=== PATIENT | female | born 1935 | race African-American/Black ===

== ENCOUNTER 2016-09-18 11:49 | Emergency (ER) | payer MEDICARE ==
[2016-09-18 12:27] LABS: #Eosinphils 0.1 thou/uL (0.0-0.7); #Lymphocytes 0.5 thou/uL (1.20-3.40); #Monocytes 0.2 thou/uL (0.11-0.59); #Neutrophils 1.6 thou/uL (1.40-6.50); %Basophils 1.1 % (0.0-1.0); %Eosinophils 6.1 % (0.0-10.0); %Monocytes 6.1 % (0.0-10.0); Hematocrit 35.8 % (36.0-47.0); Mean Platelet Volume 6.3 fL (7.4-10.4); Red Blood Cell (RBC) Count 3.46 mill/uL (4.20-5.40); White Blood Cell (WBC) Count 2.4 thou/uL (4.8-10.8)
[2016-09-18 12:30] LABS: Prothrombin Time 16.6 SEC (12.0-14.7)
[2016-09-18 12:38] LABS: Digoxin Less than 0.15 ng/mL (0.8-2.0)
[2016-09-18 12:40] LABS: ALT (SGPT) 39 U/L (0-55); AST (SGOT) 78 U/L (5-34); Alkaline Phosphatase 127 U/L (40-150); Anion Gap 9 mmol/L (10-20); BUN (Urea Nitrogen) 16 mg/dL (9.8-20.1); Bilirubin, Total 0.9 mg/dL (0.2-1.2); Calc. Creatinine Clearance 0 mL/min (70-130); Calcium 7.7 mg/dL (7.8-10.44); Carbon Dioxide 28 mmol/L (23-31); Chloride 107 mmol/L (98-107); Estimated GFR-MDRD 42; Globulin 5.8 g/dL (2.4-3.5)
[2016-09-18 12:47] LABS: Troponin I 0.024 ng/mL (< 0.028)
--- NOTE | 2016-09-18 13:23 | ERRECORD ---
[facility] EMERGENCY RECORD HPI GENERAL (12: [facility]) CHIEF COMPLAINT: Patient presents for evaluation of Bradycardia. HISTORIAN: History provided by patient, History provided by patient's partner, 81F presents to the ED on the advice of her visiting nurse that noted a slow heart rate at home today. Patient states that she has had some difficulty breathing for the past two weeks. States the nurse checks her pulse every few days. Reports that it might have been low the last time she checked, but does not believe that it was low prior to that. Denies chest pain. MECHANISM OF INJURY: Unknown mechanism. LOCATION: No localizing symptoms. TIME COURSE: Patient unable to describe onset of symptoms. ASSOCIATED WITH: No associated symptoms. RELIEVED BY: Nothing tried for relief. ROS (12:23 [facility]) CONSTITUTIONAL: Negative constitutional review of systems, Historian denies chills, denies fever. EYES: Negative eye review of systems, Historian denies eye pain, denies vision changes. ENT: Negative ears, nose, throat review of systems, Historian denies rhinorrhea, denies sore throat, denies voice changes. CARDIOVASCULAR: Negative cardiovascular review of systems, Historian denies chest pain, reports dyspnea on exertion, reports edema, denies palpitations. bilateral lower extremity edema. RESPIRATORY: Historian denies cough, Historian reports shortness of breath with exertion for the past two weeks. GI: Negative gastrointestinal review of systems, Historian denies abdominal pain, denies constipation, denies diarrhea, denies nausea, denies vomiting. GENITOURINARY FEMALE: Negative genitourinary review of systems, Historian denies dysuria, denies frequency. MUSCULOSKELETAL: Negative musculoskeletal review of systems, Historian denies back pain, denies fall, denies injury. SKIN: Negative skin review of systems, Historian denies rash, denies skin changes. NEUROLOGIC: Negative neurologic review of systems, Historian denies headache, denies mental status changes, denies paralysis, denies paresthesias, denies sensory changes. HEMO/LYMPHATIC: Normal hematologic/lymphatic system review, Historian denies abnormal blood clotting. ALLERGIC/IMMUNOLOGIC: Normal allergy/immunologic system review, Historian denies frequent infections. PAST MEDICAL HISTORY (12: [facility]) MEDICAL HISTORY: Flu vaccine up to date, No past medical history of diabetes, Past medical history includes history of &a-1R&a+25V*p+0X*[id number]*c202B*c15G*c2P*p-0X&a-25V&a+1R Name: Kota Hi : 1935 F80 MedRec: [id number] AcctNum: [id number] Prepared: SunSep 18, 2016 13:34 by Interface Page 1 of 4 pMD [facility] EMERGENCY RECORD hyperlipidemia, Past medical history includes history of hypertension. FEMALE SURGICAL HISTORY: Surgical history of hysterectomy, Surgical history of thyroidectomy. PSYCHIATRIC HISTORY: No previous psychiatric history. SOCIAL HISTORY: Patient drinks socially, every week, Patient denies drug use, Patient currently uses tobacco, smokes cigarettes, daily, Patient smokes 1 pack per day, Patient denies alcohol use, Patient denies drug use, Patient has no smoking history. FAMILY HISTORY: Maternal history of malignancy. KNOWN ALLERGIES No Known Allergies CURRENT MEDICATIONS meloxicam: TABLET : Strength - 7.5 mg : ORAL Patient Dose: 1 tab(s) Oral once a day. (11:57 JSMI) Synthroid: TABLET : Strength - 100 mcg : ORAL Patient Dose: 1 tab(s) Oral once a day. (11:57 JSMI) torsemide: TABLET : Strength - 100 mg : ORAL Patient Dose: 1 tab(s) Oral once a day. (11:57 JSMI) spironolactone: TABLET : Strength - 25 mg : ORAL Patient Dose: 1 tab(s) Oral 2 times a day. (11:57 JS[facility]) azaTHIOprine: TABLET : Strength - 50 mg : ORAL Patient Dose: 1 tab(s) Oral once a day. (11:57 JSMI) Calcium 600 + D(3): TABLET : Strength - 600 mg calcium (1,500 mg)-200 unit : ORAL Patient Dose: 1 tab(s) Oral once a day. (11:57 JS[facility]) Tenormin: TABLET : Strength - 50 mg : ORAL Patient Dose: 1 tab(s) Oral once a day. (12:53 JS[facility]) pantoprazole: TABLET, DELAYED RELEASE (ENTERIC COATED) : Strength - 40 mg : ORAL Patient Dose: once a day (in the morning). (12:56 JS[facility]) ProAir HFA: HFA AEROSOL WITH ADAPTER (GRAM) : Strength - 90 mcg : INHALATION Patient Dose: As Needed. (12:56 [facility]) tiZANidine: CAPSULE : Strength - 2 mg : ORAL Patient Dose: UNK. (12:56 [facility]) VITAL SIGNS VITAL SIGNS: BP: 188/92, Pulse: 40, Resp: 20, Pain: 0, O2 sat: 96 on Room Air, Time: 09/18/2016 11:58. (11:58 [facility]) &a-1R&a+25V*p+0X*h4605I*c202B*c15G*c2P*p-0X&a-25V&a+1R Name: Kota Hi : 1935 F80 MedRec: [id number] AcctNum: [id number] Prepared: SunSep 18, 2016 13:34 by Interface Page 2 of 4 pMD [facility] EMERGENCY RECORD BP: 164/76, Pulse: 37, Resp: 16, Pain: 0, O2 sat: 98 on Room Air, Time: 09/18/2016 12:16. (12:16 [facility]) BP: 167/76, Pulse: 36, Resp: 14, Pain: 0, O2 sat: 94 on Room Air, Time: 09/18/2016 12:57. (12:57 [facility]) BP: 162/80, Pulse: 40, Resp: 14, Pain: 0, O2 sat: 97 on Room Air, Time: 09/18/2016 13:10. (13:10 [facility]) PHYSICAL EXAM (12:23 [facility]) CONSTITUTIONAL: Vital signs reviewed, Patient afebrile, Pulse, bradycardic, Blood pressure normal, Respiratory rate normal, Patient appears non toxic, Patient appears pain free, Patient alert and oriented to person, place and time. HEAD: Head exam normal, Head exam included findings of head atraumatic, normocephalic. EYES: Eye exam normal, Eye exam included findings of eyelids normal to inspection, Pupils equally round and reactive to light, Extraocular muscles intact, no nystagmus. ENT: ENT exam normal, Ear exam normal, external ear normal, tympanic membranes normal, no bleeding, Pharynx exam normal, Uvula exam normal, Tonsil exam normal, Mouth exam normal, mucous membranes moist, teeth normal. NECK: Neck exam normal, Neck exam included findings of normal range of motion, Trachea midline, no meningeal signs, no cervical adenopathy, no tenderness. RESPIRATORY CHEST: Respiratory and chest exam normal, Respiratory exam included findings of no respiratory distress, Breath sounds clear. CARDIOVASCULAR: Cardiovascular assessment normal, Cardiovascular exam included findings of heart rate regular rate and rhythm, Heart sounds normal. ABDOMEN FEMALE: Abdominal exam included findings of abdomen nontender, Bowel sounds normal, no distension, no mass, no pulsatile masses, no peritoneal signs, no rigidity, no guarding, no rebound, Rovsing's sign absent. BACK: Back exam normal, Back exam included findings of normal inspection, range of motion normal, no tenderness. UPPER EXTREMITY: Upper extremity exam normal, Upper extremity exam included findings of inspection normal, Range of motion normal, Motor strength normal, Sensation intact, Radial pulse normal. LOWER EXTREMITY: Lower extremity exam normal, Lower extremity exam included findings of inspection normal, Range of motion normal, Motor strength normal, Sensation intact, Posterior tibial pulse normal, Pedal pulse normal. NEURO: Neuro exam normal, Neuro exam findings include patient oriented to person, place and time, Speech normal, Gait normal, Cranial nerves intact, no focal motor deficits, no focal sensory deficits. SKIN: Skin exam normal, Skin exam included findings of skin warm, dry, and normal in color, no rash. PSYCHIATRIC: Psychiatric exam normal, Normal affect. &a-1R&a+25V*p+0X*j5475T*c202B*c15G*c2P*p-0X&a-25V&a+1R Name: Kota Hi : 1935 F80 MedRec: [id number] AcctNum: [id number] Prepared: SunSep 18, 2016 13:34 by Interface Page 3 of 4 pMD [facility] EMERGENCY RECORD EKG INTERPRETATION (12:25 [facility]) 12 LEAD EKG INTERPRETATION: 12 lead EKG interpreted by Emergency Department Physician at time of study, 12 lead EKG shows, first degree AV Block, Rate (beats per minute): 39, with no ectopics, No previous EKG available for comparison, Interpretation:, Conduction with, incomplete right bundle branch block, ST segments normal. MEDICATION ADMINISTRATION SUMMARY Drug Name: calcium gluconate intravenous, Dose Ordered: 10 mL, Route: IV Piggy Back, Status: Given, Time: 13:10 09/18/2016, Detailed record available in Medication Service section. DOCTOR NOTES (13:11 [facility]) TEXT: Patient presented with asymptomatic bradycardia. On further questioning she noted occasional muscle cramps, but otherwise states she is in her normal state of health. Her lab work is notable for hypocalcemia, thrombocytopenia, and leukopenia. We have begun IV replacement of her calcium, and I believe she will benefit from transfer for further workup and investigation. PATIENT STATUS: Patient's status is unchanged since arrival to emergency department. PATIENT PLAN: The patient requires a transfer and will be transferred, per physician request, due to availability of specialty care, Transfer form completed. DATA REVIEWED: Lab data reviewed, Reviewed EKG. PROBLEM LIST No recorded problems DIAGNOSIS (13:02 [facility]) FINAL: PRIMARY: bradycardia, ADDITIONAL: HYPOCALCEMIA. PRESCRIPTION No recorded prescriptions DISPOSITION PATIENT: Disposition Type: Transfer, Disposition: Transfer to [facility]. (13:02 [facility]) Patient left the department. (13:32 [facility]) [place]: CHRISTIANOO=AMANDA Solis, December [facility]=MD Tracey, Tavo JSMI=LEONORA Lawton, Sandra &a-1R&a+25V*p+0X*[id number]*c202B*c15G*c2P*p-0X&a-25V&a+1R Name: Kota Hi Barry : 1935 F80 MedRec: [id number] AcctNum: [id number] Prepared: SunSep 18, 2016 13:34 by Interface Page 4 of 4 pMD MTDD
--- NOTE | 2016-09-18 13:28 | PICIS ---
[facility] EMERGENCY RECORD TRIAGE (SunSep 18, 2016 11:55 JSMI) PATIENT: NAME: Kota Hi, GENDER: female, TIME OF GREET: SunSep 18, 2016 11:50, PREFERRED LANGUAGE: Estonian, ETHNICITY: Not or , ECODE BILLING MAP: [facility], SSN: [id number], Zip Code: [address], KG WEIGHT: 77.11, PHONE: , , , PERSON ID: [id number], PAYMENT: [place] [employer], PCP: DO MCGRATH JOHN SCOTT. (SunSep 18, 2016 11:55 JSMI) AGE: 80, : Sun1935. (12:12) COMPLAINT: slow heart rate. (SunSep 18, 2016 11:55 JSMI) ADMISSION: URGENCY: 3 Urgent, ADMISSION SOURCE: Home, TRANSPORT: CAR, BED: TRIAGE. (SunSep 18, 2016 11:55 JSMI) ASSESSMENT: Assessment: PT PRESENTS AWAKE ALERT AND ORIENTED. SKIN PINK WARM AND DRY., Location: Ambulatory without difficulty denies dizziness. (12:01 JSMI) SIRS SCORING: Heart Rate 40-54 (1), Temp range 96.8-101.1 (0), respiratory rate 12-24 (0), Mental Status altered: no (0), Infection or Suspected Infection: No. (12:01 JSMI) PROVIDERS: TRIAGE NURSE: Sandra Lawton RN. (SunSep 18, 2016 11:55 JSMI) VITAL SIGNS: BP 188/92, Pulse 40, Resp 20, Pain 0, O2 Sat 96, on Room Air, Time 09/18/2016 11:58. (11:58 JSMI) PREVIOUS VISIT ALLERGIES: No Known Allergies. (SunSep 18, 2016 11:55 JSMI) No Known Allergies. (12:01 JSMI) KNOWN ALLERGIES No Known Allergies CURRENT MEDICATIONS meloxicam: TABLET : Strength - 7.5 mg : ORAL Patient Dose: 1 tab(s) Oral once a day. (11:57 JSMI) Synthroid: TABLET : Strength - 100 mcg : ORAL Patient Dose: 1 tab(s) Oral once a day. (11:57 JSMI) torsemide: TABLET : Strength - 100 mg : ORAL Patient Dose: 1 tab(s) Oral once a day. (11:57 JSMI) spironolactone: TABLET : Strength - 25 mg : ORAL Patient Dose: 1 tab(s) Oral 2 times a day. (11:57 JSMI) azaTHIOprine: TABLET : Strength - 50 mg : ORAL Patient Dose: 1 tab(s) Oral once a day. (11:57 JSMI) Calcium 600 + D(3): TABLET : Strength - 600 mg calcium (1,500 mg)-200 unit : ORAL Patient Dose: 1 tab(s) Oral once a day. (11:57 JSMI) Tenormin: TABLET : Strength - 50 mg : ORAL &a-1R&a+25V*p+0X*i5110Y*c202B*c15G*c2P*p-0X&a-25V&a+1R Name: Kota Hi : 1935 F80 MedRec: [id number] AcctNum: [id number] Prepared: SunSep 18, 2016 13:34 by Interface Page 1 of 8 pMD [facility] EMERGENCY RECORD Patient Dose: 1 tab(s) Oral once a day. (12:53 JSMI) pantoprazole: TABLET, DELAYED RELEASE (ENTERIC COATED) : Strength - 40 mg : ORAL Patient Dose: once a day (in the morning). (12:56 JSMI) ProAir HFA: HFA AEROSOL WITH ADAPTER (GRAM) : Strength - 90 mcg : INHALATION Patient Dose: As Needed. (12:56 JSMI) tiZANidine: CAPSULE : Strength - 2 mg : ORAL Patient Dose: UNK. (12:56 JSMI) VITAL SIGNS VITAL SIGNS: BP: 188/92, Pulse: 40, Resp: 20, Pain: 0, O2 sat: 96 on Room Air, Time: 09/18/2016 11:58. (11:58 JSMI) BP: 164/76, Pulse: 37, Resp: 16, Pain: 0, O2 sat: 98 on Room Air, Time: 09/18/2016 12:16. (12:16 AHOO) BP: 167/76, Pulse: 36, Resp: 14, Pain: 0, O2 sat: 94 on Room Air, Time: 09/18/2016 12:57. (12:57 JSMI) BP: 162/80, Pulse: 40, Resp: 14, Pain: 0, O2 sat: 97 on Room Air, Time: 09/18/2016 13:10. (13:10 JSMI) NURSING ASSESSMENT: FALL RISK (12:57 JSMI) FALL RISK: Total score 0. NURSING PROCEDURE: BEDSIDE SIRS TESTING (13:11 AHOO) SCORES: Heart Rate 30-39 (3), Temp range 96.8-101.1 (0), respiratory rate 12-24 (0), Latest WBC 1-2.9 (2), Mental Status altered: no (0), Infection or Suspected Infection: No. NURSING PROCEDURE: EKG CHART (12:01 AHOO) PATIENT IDENTIFIER: Patient actively involved in identification process, Patient's identity verified by patient stating name, Patient's identity verified by patient stating date, Patient's identity verified by hospital ID bracelet, Patient's identity verified by family member. EKG: EKG indicated for complaint of an irregular heart beat, 12 lead EKG performed on the left chest, done by MARTHA PINZON LVN, first EKG. FOLLOW-UP: After procedure, EKG for interpretation given to Dr. DR HAMPTON. NURSING PROCEDURE: IV (12:10 AHOO) PATIENT IDENITIFIER: Patient actively involved in identification process, Patient's identity verified by patient stating name, Patient's identity verified by patient stating date, Patient's identity verified by hospital ID bracelet, Patient's identity verified by family member. IV SITE 1: IV therapy indicated for medication administration, IV established, to the left antecubital, using an 18 gauge catheter, in one attempt, Saline lock established, Flushed with normal saline &a-1R&a+25V*p+0X*h0256R*c202B*c15G*c2P*p-0X&a-25V&a+1R Name: Kota Hi : 1935 F80 MedRec: [id number] AcctNum: [id number] Prepared: SunSep 18, 2016 13:34 by Interface Page 2 of 8 pMD [facility] EMERGENCY RECORD (mls): 10ML, Labs drawn at time of placement, labeled in the presence of the patient and sent to lab. NURSING PROCEDURE: TRANSFER TRANSFER: Report called to receiving facility, LEONORA Carlton, Provided opportunity to answer questions. (13:25 JSWV) Reason for transfer need for specialized care, Diagnosis: HYPOKALEMIA, BRADYCARDIA, Accepting institution: [facility], Accepting physician: DR SHARMA, Referring physician: DR HAMPTON, Transported by urgent ambulance, accompanied by emergency medical services personnel, Summary of Care printed, Copy of patient record prepared for receiving facility, Medication reconciliation form prepared and sent to receiving facility, Patient consent for transfer signed, Family member contacted, PT SPOUSE AT BEDSIDE, Notes: 1254 CALLED THE TRANSFER CENTER AND SPOKE WITH BLACK, 1258 DR SHARMA ACCEPTED, 1258 ACCEPTING AD IS CLAUDETTE LOW, 1302 CALLED EMS, 1306 EMS ARRIVED, 1314 EMS LEFT WITH THE PT. (12:54 [facility]) ORDER DETAILS Order Name: Cardiac Profile w/CKMB & Troponin - I, Status: Active, Time: 12:05 09/18/2016, User: KAJAL, - Ordered for: MD Hampton Jason, - Entered by: MD Hampton Jason - Claribel Sep 18, 2016 12:05, - Quantity: 1, Order Name: CBC with Differential, Status: Active, Time: 12:05 09/18/2016, User: KAJAL, - Ordered for: MD Hampton Jason, - Entered by: MD Hampton Jason - Claribel Sep 18, 2016 12:05, - Quantity: 1, Order Name: Comprehensive Metabolic Panel, Status: Active, Time: 12:05 09/18/2016, User: KAJAL, - Ordered for: MD Hampton Jason, - Entered by: MD Hampton Jason - Claribel Sep 18, 2016 12:05, - Quantity: 1, Order Name: Digoxin, Status: Active, Time: 12:05 09/18/2016, User: KAJAL, - Ordered for: MD Hampton Jason, - Entered by: MD Hampton Jason - Claribel Sep 18, 2016 12:05, - Quantity: 1, Order Name: EKG 12 Lead in Emergency Room, Status: Active, Time: 12:05 09/18/2016, User: KAJAL, - Ordered for: MD Hampton Jason, - Entered by: MD Hampton Jason - [facility] Sep 18, 2016 12:05, - Quantity: 1, Order Name: Protime with INR, Status: Active, Time: 12:05 09/18/2016, User: KAJAL, - Ordered for: MD Hampton Jason, - Entered by: MD Hampton Jason - [facility] Sep 18, 2016 12:05, - Quantity: 1, &a-1R&a+25V*p+0X*m5111X*c202B*c15G*c2P*p-0X&a-25V&a+1R Name: Kota Hi : 1935 F80 MedRec: [id number] AcctNum: [id number] Prepared: SunSep 18, 2016 13:34 by Interface Page 3 of 8 D [facility] EMERGENCY RECORD Order Name: PTT, Status: Active, Time: 12:05 09/18/2016, User: ASHLEY, - Ordered for: MD Hampton Jason, - Entered by: MD Hampton Jason - [facility] Sep 18, 2016 12:05, - Quantity: 1, Order Name: SALINE LOCK, Status: Done, Time: 12:07 09/18/2016, User: [facility], - Ordered for: MD Hampton Jason, - Entered by: MD Hampton Jason - [facility] Sep 18, 2016 12:05, - Quantity: 1. MEDICATION ADMINISTRATION SUMMARY Drug Name: calcium gluconate intravenous, Dose Ordered: 10 mL, Route: IV Piggy Back, Status: Given, Time: 13:10 09/18/2016, Detailed record available in Medication Service section. MEDICATION SERVICE (13:10 [facility]) calcium gluconate intravenous: Order: calcium gluconate intravenous (calcium gluconate) - Dose: 10 mL : IV Piggy Back Ordered by: Tavo Hampton MD Entered by: Tavo Hampton MD SunSep 18, 2016 13:02 , Acknowledged by: Martha Pinzon LVN SunSep 18, 2016 13:10 Documented as given by: Sandra Lawton RN SunSep 18, 2016 13:10 Patient, Medication, Dose, Route and Time verified prior to administration. IV SITE #1 IVPB or drip, initial infusion, IVPB mixed in: 100ml, Fluid: 0.9NS, via pump tubing, Catheter placement confirmed via flush prior to administration, IV site without signs or symptoms of infiltration during medication administration, No swelling during administration, No drainage during administration, IV flushed after administration, Correct patient, time, route, dose and medication confirmed prior to administration, Patient advised of actions and side-effects prior to administration, Allergies confirmed and medications reviewed prior to administration, Patient in position of comfort, Side rails up, Cart in lowest position, Family at bedside. HPI GENERAL (12:01 [facility]) CHIEF COMPLAINT: Patient presents for evaluation of Bradycardia. HISTORIAN: History provided by patient, History provided by patient's partner, 81F presents to the ED on the advice of her visiting nurse that noted a slow heart rate at home today. Patient states that she has had some difficulty breathing for the past two weeks. States the nurse checks her pulse every few days. Reports that it might have been low the last time she checked, but does not believe that it was low prior to that. Denies chest pain. MECHANISM OF INJURY: Unknown mechanism. LOCATION: No localizing symptoms. TIME COURSE: Patient unable to describe onset of &a-1R&a+25V*p+0X*i3177U*c202B*c15G*c2P*p-0X&a-25V&a+1R Name: Kota Hi : 1935 F80 MedRec: [id number] AcctNum: [id number] Prepared: SunSep 18, 2016 13:34 by Interface Page 4 of 8 pMD [facility] EMERGENCY RECORD symptoms. ASSOCIATED WITH: No associated symptoms. RELIEVED BY: Nothing tried for relief. ROS (12:23 [facility]) CONSTITUTIONAL: Negative constitutional review of systems, Historian denies chills, denies fever. EYES: Negative eye review of systems, Historian denies eye pain, denies vision changes. ENT: Negative ears, nose, throat review of systems, Historian denies rhinorrhea, denies sore throat, denies voice changes. CARDIOVASCULAR: Negative cardiovascular review of systems, Historian denies chest pain, reports dyspnea on exertion, reports edema, denies palpitations. bilateral lower extremity edema. RESPIRATORY: Historian denies cough, Historian reports shortness of breath with exertion for the past two weeks. GI: Negative gastrointestinal review of systems, Historian denies abdominal pain, denies constipation, denies diarrhea, denies nausea, denies vomiting. GENITOURINARY FEMALE: Negative genitourinary review of systems, Historian denies dysuria, denies frequency. MUSCULOSKELETAL: Negative musculoskeletal review of systems, Historian denies back pain, denies fall, denies injury. SKIN: Negative skin review of systems, Historian denies rash, denies skin changes. NEUROLOGIC: Negative neurologic review of systems, Historian denies headache, denies mental status changes, denies paralysis, denies paresthesias, denies sensory changes. HEMO/LYMPHATIC: Normal hematologic/lymphatic system review, Historian denies abnormal blood clotting. ALLERGIC/IMMUNOLOGIC: Normal allergy/immunologic system review, Historian denies frequent infections. PAST MEDICAL HISTORY (12:01 [facility]) MEDICAL HISTORY: Flu vaccine up to date, No past medical history of diabetes, Past medical history includes history of hyperlipidemia, Past medical history includes history of hypertension. FEMALE SURGICAL HISTORY: Surgical history of hysterectomy, Surgical history of thyroidectomy. PSYCHIATRIC HISTORY: No previous psychiatric history. SOCIAL HISTORY: Patient drinks socially, every week, Patient denies drug use, Patient currently uses tobacco, smokes cigarettes, daily, Patient smokes 1 pack per day, Patient denies alcohol use, Patient denies drug use, Patient has no smoking history. FAMILY HISTORY: Maternal history of malignancy. PHYSICAL EXAM (12:23 [facility]) &a-1R&a+25V*p+0X*r1269W*c202B*c15G*c2P*p-0X&a-25V&a+1R Name: Kota Hi : 1935 F80 MedRec: [id number] AcctNum: [id number] Prepared: SunSep 18, 2016 13:34 by Interface Page 5 of 8 pMD [facility] EMERGENCY RECORD CONSTITUTIONAL: Vital signs reviewed, Patient afebrile, Pulse, bradycardic, Blood pressure normal, Respiratory rate normal, Patient appears non toxic, Patient appears pain free, Patient alert and oriented to person, place and time. HEAD: Head exam normal, Head exam included findings of head atraumatic, normocephalic. EYES: Eye exam normal, Eye exam included findings of eyelids normal to inspection, Pupils equally round and reactive to light, Extraocular muscles intact, no nystagmus. ENT: ENT exam normal, Ear exam normal, external ear normal, tympanic membranes normal, no bleeding, Pharynx exam normal, Uvula exam normal, Tonsil exam normal, Mouth exam normal, mucous membranes moist, teeth normal. NECK: Neck exam normal, Neck exam included findings of normal range of motion, Trachea midline, no meningeal signs, no cervical adenopathy, no tenderness. RESPIRATORY CHEST: Respiratory and chest exam normal, Respiratory exam included findings of no respiratory distress, Breath sounds clear. CARDIOVASCULAR: Cardiovascular assessment normal, Cardiovascular exam included findings of heart rate regular rate and rhythm, Heart sounds normal. ABDOMEN FEMALE: Abdominal exam included findings of abdomen nontender, Bowel sounds normal, no distension, no mass, no pulsatile masses, no peritoneal signs, no rigidity, no guarding, no rebound, Rovsing's sign absent. BACK: Back exam normal, Back exam included findings of normal inspection, range of motion normal, no tenderness. UPPER EXTREMITY: Upper extremity exam normal, Upper extremity exam included findings of inspection normal, Range of motion normal, Motor strength normal, Sensation intact, Radial pulse normal. LOWER EXTREMITY: Lower extremity exam normal, Lower extremity exam included findings of inspection normal, Range of motion normal, Motor strength normal, Sensation intact, Posterior tibial pulse normal, Pedal pulse normal. NEURO: Neuro exam normal, Neuro exam findings include patient oriented to person, place and time, Speech normal, Gait normal, Cranial nerves intact, no focal motor deficits, no focal sensory deficits. SKIN: Skin exam normal, Skin exam included findings of skin warm, dry, and normal in color, no rash. PSYCHIATRIC: Psychiatric exam normal, Normal affect. LAB INTERPRETATION (13:10 [facility]) INTERPRETATION: I reviewed the lab results, CBC abnormal, White blood cell count decreased, Platelets decreased, Chemistry abnormal, Creatinine elevated, Calcium decreased, Cardiac enzymes normal. &a-1R&a+25V*p+0X*d1351L*c202B*c15G*c2P*p-0X&a-25V&a+1R Name: Kota Hi : 1935 F80 MedRec: [id number] AcctNum: [id number] Prepared: SunSep 18, 2016 13:34 by Interface Page 6 of 8 pMD [facility] EMERGENCY RECORD EVENTS TRANSFER: Triage to Emergency Triage. (SunSep 18, 2016 11:55 JSMI) Emergency Triage to Emergency Room -02. (12:07 AHOO) Removed from Emergency Emergency Room -02. (13:32 AHOO) EKG INTERPRETATION (12:25 [facility]) 12 LEAD EKG INTERPRETATION: 12 lead EKG interpreted by Emergency Department Physician at time of study, 12 lead EKG shows, first degree AV Block, Rate (beats per minute): 39, with no ectopics, No previous EKG available for comparison, Interpretation:, Conduction with, incomplete right bundle branch block, ST segments normal. DOCTOR NOTES (13:11 [facility]) TEXT: Patient presented with asymptomatic bradycardia. On further questioning she noted occasional muscle cramps, but otherwise states she is in her normal state of health. Her lab work is notable for hypocalcemia, thrombocytopenia, and leukopenia. We have begun IV replacement of her calcium, and I believe she will benefit from transfer for further workup and investigation. PATIENT STATUS: Patient's status is unchanged since arrival to emergency department. PATIENT PLAN: The patient requires a transfer and will be transferred, per physician request, due to availability of specialty care, Transfer form completed. DATA REVIEWED: Lab data reviewed, Reviewed EKG. PROBLEM LIST No recorded problems DIAGNOSIS (13:02 [facility]) FINAL: PRIMARY: bradycardia, ADDITIONAL: HYPOCALCEMIA. DISPOSITION PATIENT: Disposition Type: Transfer, Disposition: Transfer to [facility]. (13:02 [facility]) Patient left the department. (13:32 [facility]) PRESCRIPTION No recorded prescriptions IMAGING *EKG: Image captured from scanner. (12:46 [facility]) CONSENTS: Image captured from scanner. (13:23 [facility]) *MEMORANDUM OF TRANSFER: Image captured from scanner. (13:23 [facility]) PHYSICIAN CERTIFICATION STATEMENT: Image captured from scanner. (13:23 [facility]) &a-1R&a+25V*p+0X*r0588P*c202B*c15G*c2P*p-0X&a-25V&a+1R Name: Kota Hi : 1935 F80 MedRec: [id number] AcctNum: [id number] Prepared: SunSep 18, 2016 13:34 by Interface Page 7 of 8 pMD [facility] EMERGENCY RECORD *SUPPLY CHARGE SHEET: Image captured from scanner. (13:23 [facility]) [facility] DIGITAL SIGNATURE: MD Hampton Jason. [place]: JORGE=AMANDA Pinzon, December ASHLEYC=MD Hampton Jason JSMI=LEONORA Lawton, Sandra &a-1R&a+25V*p+0X*x6068N*c202B*c15G*c2P*p-0X&a-25V&a+1R Name: Kota Hi Barry : 1935 F80 MedRec: [id number] AcctNum: [id number] Prepared: [facility] Sep 18, 2016 13:34 by Interface Page 8 of 8 pMD MTDD
== END 2016-09-18 13:06 | disposition short-term general hospital (02) ==
LOC: BURERS 11:49 → EDBD 11:49 → BURERS 13:06
DX: R00.1 Bradycardia, unspecified (principal); E83.51 Hypocalcemia; F17.210 Nicotine dependence, cigarettes, uncomplicated; E11.9 Type 2 diabetes mellitus without complications; E78.5 Hyperlipidemia, unspecified; I10 Essential (primary) hypertension; Z90.710 Acquired absence of both cervix and uterus
CPT/HCPCS: 80053; 80162; 82553; 83735; 84484; 85025; 85610; 85730; 93005

== ENCOUNTER 2016-10-12 07:24 | Emergency (ER) | payer MEDICARE ==
[2016-10-12 08:34] LABS: #Lymphocytes 0.4 thou/uL (1.20-3.40); #Monocytes 0.2 thou/uL (0.11-0.59); #Neutrophils 5.8 thou/uL (1.40-6.50); %Basophils 0.2 % (0.0-1.0); %Eosinophils 0.2 % (0.0-10.0); %Monocytes 3.5 % (0.0-10.0); Hematocrit 34.2 % (36.0-47.0); Mean Platelet Volume 6.9 fL (7.4-10.4); Red Blood Cell (RBC) Count 3.37 mill/uL (4.20-5.40); White Blood Cell (WBC) Count 6.4 thou/uL (4.8-10.8)
[2016-10-12] MEDS ORDERED: Amoxicillin/Potassium Clav 875 MG TAB ONE (08:36)
[2016-10-12 08:40] LABS: Lactic Acid - Sepsis 2.3 mmol/L (0.5-2.2)
[2016-10-12 08:42] LABS: Troponin I Less than 0.010 ng/mL (< 0.028)
[2016-10-12 08:45] LABS: ALT (SGPT) 41 U/L (0-55); AST (SGOT) 71 U/L (5-34); Alkaline Phosphatase 153 U/L (40-150); Anion Gap 10 mmol/L (10-20); BUN (Urea Nitrogen) 11 mg/dL (9.8-20.1); Bilirubin, Total 1.1 mg/dL (0.2-1.2); Calc. Creatinine Clearance 0 mL/min (70-130); Calcium 8.1 mg/dL (7.8-10.44); Carbon Dioxide 31 mmol/L (23-31); Chloride 101 mmol/L (98-107); Estimated GFR-MDRD 52; Globulin 6.7 g/dL (2.4-3.5); Lipase 76 U/L (8-78); Protein, Total 10.2 g/dL (5.8-8.1)
[2016-10-12 08:54] LABS: Macrocytosis SLIGHT = 6-15 cells (100X) (0-5/hpf)
--- NOTE | 2016-10-12 09:12 | PICIS ---
[facility] EMERGENCY RECORD TRIAGE (SunOct 12, 2016 07:30 KMOR) TRIAGE NOTES: Abdominal pain started last night, feels constipated. Vomited x2. (SunOct 12, 2016 07:30 KMOR) PATIENT: NAME: Kota iH, GENDER: female, TIME OF GREET: SunOct 12, 2016 07:25, PREFERRED LANGUAGE: Kazakh, ETHNICITY: Not or , ECODE BILLING MAP: [facility], SSN: [id number], Zip Code: [address], KG WEIGHT: 122.47, PHONE: , , , PERSON ID: [id number], PAYMENT: [employer], PCP: DO MCGRATH JOHN SCOTT. (SunOct 12, 2016 07:30 KMOR) AGE: 81, : Sun Nov 17, 1934. (07:52) COMPLAINT: Abdominal Pain. (SunOct 12, 2016 07:30 KMOR) ADMISSION: URGENCY: 3 Urgent, ADMISSION SOURCE: Home, TRANSPORT: CAR, BED: ER -03. (SunOct 12, 2016 07:30 KMOR) ASSESSMENT: Assessment: A&XO4. RR EVEN AND UNLABORED., Symptoms began yesterday. (07:32 KMOR) PAIN: Patient complains of pain described as, aching, cramping, on a scale 0-10 patient rates pain as 8. (07:32 KMOR) IMMUNIZATIONS: Flu vaccine up to date, Tetanus immunization up to date. (07:32 KMOR) SIRS SCORING: Heart Rate 55-109 (0), Temp range 96.8-101.1 (0), respiratory rate 12-24 (0), Mental Status altered: no (0), Infection or Suspected Infection: No. (07:32 KMOR) TRIAGE SCREENING: Patient denies suicidal ideation, Patient denies presence of domestic violence. (07:32 KMOR) LMP: LMP: Hysterectomy. (07:32 KMOR) PROVIDERS: TRIAGE NURSE: Deyanira Rodriguez RN. (SunOct 12, 2016 07:30 KMOR) VITAL SIGNS: BP 153/91, Pulse 82, Resp 18, Temp 97.8, (Oral), Pain 8, O2 Sat 94, on Room Air, Time 10/12/2016 07:31. (07:31 KMOR) PREVIOUS VISIT ALLERGIES: No Known Allergies. (SunOct 12, 2016 07:30 KMOR) No Known Allergies. (07:32 KMOR) KNOWN ALLERGIES No Known Allergies (Unconfirmed) No Known Drug Allergies CURRENT MEDICATIONS (07:44 KMOR) meloxicam: TABLET : Strength - 7.5 mg : ORAL Patient Dose: 1 tab(s) Oral once a day. Synthroid: TABLET : Strength - 100 mcg : ORAL Patient Dose: 1 tab(s) Oral once a day. torsemide: TABLET : Strength - 100 mg : ORAL Patient Dose: 1 tab(s) Oral once a day. spironolactone: &a-1R&a+25V*p+0X*m2962L*c202B*c15G*c2P*p-0X&a-25V&a+1R Name: Kota Hi Stacy : 11/17/1934 F81 MedRec: [id number] AcctNum: [id number] Prepared: SunOct 12, 2016 10:13 by Interface Page 1 of 10 pMD [facility] EMERGENCY RECORD TABLET : Strength - 25 mg : ORAL Patient Dose: 1 tab(s) Oral 2 times a day. azaTHIOprine: TABLET : Strength - 50 mg : ORAL Patient Dose: 1 tab(s) Oral once a day. Calcium 600 + D(3): TABLET : Strength - 600 mg calcium (1,500 mg)-200 unit : ORAL Patient Dose: 1 tab(s) Oral once a day. Tenormin: TABLET : Strength - 50 mg : ORAL Patient Dose: 1 tab(s) Oral once a day. pantoprazole: TABLET, DELAYED RELEASE (ENTERIC COATED) : Strength - 40 mg : ORAL Patient Dose: once a day (in the morning). ProAir HFA: HFA AEROSOL WITH ADAPTER (GRAM) : Strength - 90 mcg : INHALATION Patient Dose: As Needed. tiZANidine: CAPSULE : Strength - 2 mg : ORAL Patient Dose: UNK. VITAL SIGNS VITAL SIGNS: BP: 153/91, Pulse: 82, Resp: 18, Temp: 97.8 (Oral), Pain: 8, O2 sat: 94 on Room Air, Time: 10/12/2016 07:31. (07:31 KMOR) BP: 155/82, Pulse: 70, Resp: 16, Pain: 5, O2 sat: 100 on Room Air, Time: 10/12/2016 08:30. (08:30 KMOR) BP: 163/86, Pulse: 70, Resp: 16, Pain: 5, O2 sat: 95 on Room Air, Time: 10/12/2016 09:20. (09:20 KMOR) BP: 156/90, Pulse: 72, Resp: 16, Temp: 98.1 (Oral), Pain: 3, O2 sat: 95 on Room Air, Time: 10/12/2016 09:42. (09:42 KMOR) NURSING ASSESSMENT: ABDOMEN (07:45 KMOR) CONSTITUTIONAL: Patient arrives ambulatory, Gait steady, History obtained from patient, Patient appears comfortable, Patient cooperative, Patient alert, Oriented to person, place and time, Skin warm, Skin dry, Skin normal in color, Mucous membranes pink, Mucous membranes moist, Patient is well-groomed, Patient complains of Abdominal pain, Patient reports upper abdominal pain starting last night, reports 2 episodes of vomiting last night and a hard bowel movement 2 days ago. No urinary complaints. PAIN: aching pain, cramping pain, to the left upper quadrant, to the epigastric region, on a scale 0-10 patient rates pain as 7. ABDOMEN: Abdomen assessment findings include abdomen symmetrical, Abdomen soft, tender, to the epigastric region, to the left upper quadrant, Bowel sound normal, Associated with nausea, Associated with vomiting, history of vomiting, Number of times: 2, having bilious emesis, Associated with constipation, Date of last bowel movement: 10/10/2016. &a-1R&a+25V*p+0X*d0908Q*c202B*c15G*c2P*p-0X&a-25V&a+1R Name: Kota Hi : 11/17/1934 F81 MedRec: [id number] AcctNum: [id number] Prepared: SunOct 12, 2016 10:13 by Interface Page 2 of 10 pMD [facility] EMERGENCY RECORD LMP: Last menstrual period not applicable due to hysterectomy history. GENITOURINARY FEMALE: no associated urinary complaints. NOTES: Patient tolerated procedure well. NURSING PROCEDURE: HEALTHCARE ARCHITECT (08:20 KMOR) PATIENT IDENTIFIER: Patient actively involved in identification process, Patient's identity verified by patient stating name, Patient's identity verified by patient stating date. HEALTHCARE ARCHITECT: Cardiac monitoring indicated for abdominal pain, Patient placed on academic support assistant, Heart rate: 82, showing paced rhythm. NOTES: Patient tolerated procedure well. NURSING PROCEDURE: COMMUNICATIONS (09:24 LSMI) COMMUNICATIONS: Physician, DR MARTIN CALLED BACK AND SPOKE WITH DR HAMPTON. NURSING PROCEDURE: DISCHARGE NOTE (09:45 KMOR) DISCHARGE: Patient discharged to home, in a wheelchair, family driving, accompanied by //partner, Summary of Care printed/ provided, Transition record given to patient, Discharge instructions given to patient, Simple or moderate discharge teaching performed, by LEONORA Mcmillan, Discharge and follow up reviewed with patient, patient wheeled to vehicle., Prescriptions given and instructions on side effects given, Name of prescription(s) given: Colace, Above person(s) verbalized understanding of discharge instructions and follow-up care. BELONGINGS: Belongings remain with patient, Valuables remain with patient. NURSING PROCEDURE: EKG CHART (08:17 KMOR) PATIENT IDENTIFIER: Patient actively involved in identification process, Patient's identity verified by patient stating name, Patient's identity verified by patient stating date. EKG: EKG indicated for abdominal pain, 12 lead EKG performed on the left chest, done by LEONORA Mcmillan, first EKG. FOLLOW-UP: After procedure, EKG for interpretation given to Dr. Arauz. NOTES: Patient tolerated procedure well. NURSING PROCEDURE: ELIMINATION (08:07 KMOR) PATIENT IDENTIFIER: Patient actively involved in identification process, Patient's identity verified by patient stating name, Patient's identity verified by patient stating date. ELIMINATION: Patient disimpacted, Notes: Performed by Dr. Arauz. NOTES: Patient tolerated procedure well. NURSING PROCEDURE: IV &a-1R&a+25V*p+0X*h7160B*c202B*c15G*c2P*p-0X&a-25V&a+1R Name: Kota Hi : 11/17/1934 F81 MedRec: [id number] AcctNum: [id number] Prepared: SunOct 12, 2016 10:13 by Interface Page 3 of 10 D [facility] EMERGENCY RECORD PATIENT IDENITIFIER: Patient actively involved in identification process, Patient's identity verified by patient stating name, Patient's identity verified by patient stating date, Patient's identity verified by hospital ID rloand, Patient's identity verified by family member. (08:15 LSMI) IV SITE 1: IV therapy indicated for hydration, IV therapy indicated for medication administration, IV established, to the left antecubital, using a 20 gauge catheter, in one attempt, Saline lock established, Flushed with normal saline (mls): 10, Labs drawn at time of placement, labeled in the presence of the patient and sent to lab. (08:15 LSMI) FOLLOW-UP SITE 1: IV discontinued, due to patient being discharged, catheter intact. (09:42 KMOR) NOTES: Patient tolerated procedure well. (09:42 KMOR) NURSING PROCEDURE: NURSE NOTES (09:29 KMOR) NURSES NOTES: Notes: Patient resting back in bed, RR Even and unlabored. Denies needs at this time. NURSING PROCEDURE: TRANSPORT TO TESTS PATIENT IDENTIFIER: Patient actively involved in identification process, Patient's identity verified by patient stating name, Patient's identity verified by patient stating date. (08:57 KMOR) TRANSPORT TO TESTS: Transport indicated to facilitate diagnosis, Patient transported to CT scan, via cart, Accompanied by x-ray health information technician. (08:57 KMOR) FOLLOW-UP: After procedure, patient returned to emergency department. (09:05 KMOR) NOTES: Patient tolerated procedure well. (08:57 KMOR) ORDER DETAILS Order Name: HEALTHCARE ARCHITECT ED, Status: Done, Time: 08:18 10/12/2016, User: MONTY, - Ordered for: MD Arauz Darren, - Entered by: MD Arauz Darren - [facility] Oct 12, 2016 08:09, - Quantity: 1, Order Name: Cardiac Profile w/CKMB & Troponin - I, Status: Active, Time: 08:09 10/12/2016, User: RILEY, - Ordered for: MD Arauz Darren, - Entered by: MD Arauz Darren - [facility] Oct 12, 2016 08:09, - Quantity: 1, Order Name: CATH STRAIGHT ED, Status: Active, Time: 08:09 10/12/2016, User: NAJMA, - Ordered for: MD Arauz Darren, - Entered by: MD Arauz Darren - SunOct 12, 2016 08:09, - Quantity: 1, Order Name: CBC with Differential, Status: Active, Time: 08:09 10/12/2016, User: NAJMA, &a-1R&a+25V*p+0X*q0404G*c202B*c15G*c2P*p-0X&a-25V&a+1R Name: Kota Hi : 11/17/1934 F81 MedRec: [id number] AcctNum: [id number] Prepared: SunOct 12, 2016 10:13 by Interface Page 4 of 10 pMD [facility] EMERGENCY RECORD - Ordered for: MD Arauz Darren, - Entered by: MD Arauz Darren - SunOct 12, 2016 08:09, - Quantity: 1, Order Name: Comprehensive Metabolic Panel, Status: Active, Time: 08:09 10/12/2016, User: NAJMA, - Ordered for: MD Arauz Darren, - Entered by: MD Arauz Darren - SunOct 12, 2016 08:09, - Quantity: 1, Order Name: CT Abdomen Pelvis W Con, Status: Active, Time: 08:09 10/12/2016, User: NAJMA, - Ordered for: MD Arauz Darren, - Entered by: MD Arauz Darren - SunOct 12, 2016 08:09, - Quantity: 1, Order Name: EKG 12 Lead in Emergency Room, Status: Active, Time: 08:09 10/12/2016, User: NAJMA, - Ordered for: MD Arauz Darren, - Entered by: MD Arauz Darren - SunOct 12, 2016 08:09, - Quantity: 1, Order Name: ERRT Pulse Oximeter ER, Status: Active, Time: 08:09 10/12/2016, User: NAJMA, - Ordered for: MD Arauz Darren, - Entered by: MD Arauz Darren - SunOct 12, 2016 08:09, - Quantity: 1, Order Name: Lactic Acid with repeat, Status: Active, Time: 08:09 10/12/2016, User: NAJMA, - Ordered for: MD Arauz Darren, - Entered by: MD Arauz Darren - [place] Oct 12, 2016 08:09, - Quantity: 1, Order Name: Lipase, Status: Active, Time: 08:09 10/12/2016, User: NAJMA, - Ordered for: MD Arauz Darren, - Entered by: MD Arauz Darren - SunOct 12, 2016 08:09, - Quantity: 1, Order Name: Occult Blood, Stool DIAGNOSTIC(ia), Status: Active, Time: 08:46 10/12/2016, User: NAJMA, - Ordered for: MD Arauz Darren, - Entered by: MD Arauz Darren - [place] Oct 12, 2016 08:46, - Quantity: 1, Order Name: SALINE LOCK, Status: Done, Time: 08:25 10/12/2016, User: DORY, - Ordered for: MD Arauz Darren, - Entered by: MD Arauz Darren - SunOct 12, 2016 08:09, - Quantity: 1, Order Name: Thyroid Stimulating Hormone, Status: Active, Time: 08:09 10/12/2016, User: NAJMA, - Ordered for: MD Arauz Darren, - Entered by: MD Arauz Darren SunOct 12, 2016 08:09, - Quantity: 1, Order Name: Urinalysis w/ Rflx Microscopic, Status: Active, Time: 08:09 10/12/2016, User: NAJMA, - Ordered for: MD Arauz Darren, &a-1R&a+25V*p+0X*f7522R*c202B*c15G*c2P*p-0X&a-25V&a+1R Name: Kota Hi : 11/17/1934 F81 MedRec: [id number] AcctNum: [id number] Prepared: SunOct 12, 2016 10:13 by Interface Page 5 of 10 D [facility] EMERGENCY RECORD - Entered by: MD Arauz Darren - [place] Oct 12, 2016 08:09, - Quantity: 1. HPI ABDOMINAL PAIN (08:14 DHAM) CHIEF COMPLAINTS: Patient presents for evaluation of abdominal pain. HISTORIAN: History provided by patient, Very pleasant and mentally sharp BF had a EGD yesterday in [place]. They finished about 1600 and went to eat fried fish and cabbage. She arrived home at 1800 and at 2000 began to have epigastric pain and nausea with 2 episodes of emesis of undigested food. She has continued with the epigastric pain and nausea. She also c/o constipation for several days and like she can't pass her stool. She was hospitalized 2 weeks ago due to marked bradycardia and had a pacer placed. Her beta ming was changed to amlodipine (CCB) and she takes high dose torsemide and spironolactone and Tylenol #3 for pain. She has lots of reasons for an impaction. LOCATION FEMALE: Symptoms are localized, most severe in the epigastrium, no radiation, No migration of pain. QUALITY: Pain is dull in nature, described as cramping. SEVERITY: Current severity of pain rated as 8/10. TIME COURSE: Gradual onset of symptoms, Date and time of onset was 10/11/2016 20:00, Symptoms are constant. ASSOCIATED WITH FEMALE: No associated recent antibiotic use, No associated bright red blood per rectum, No associated chills, Associated with constipation, for 3 days, No associated diarrhea, No associated fever, No associated flank pain, No associated groin pain, No associated hematemesis, No associated hematuria, No associated loss of appetite, No associated melena, Associated with nausea, for 1 day, No associated night sweats, No associated trauma, No associated urinary tract infection signs or symptoms, Associated with vomiting, Number of times: 2, No associated vaginal discharge, EGD yesterday. RELIEVED BY: Patient's condition relieved by nothing, Patient's condition relieved by nothing because patient has not tried anything for relief. EXACERBATED BY: Patient's condition exacerbated by nothing. RISK FACTORS FEMALE: No ectopic risk factors present, Abdominal aortic aneurysm risk factors, include age over 40 years, Coronary artery disease risk factors, include hypertension. ROS (08:38 DHAM) CONSTITUTIONAL: Historian denies chills, denies fever, denies night sweats. EYES: Historian denies eye pain, denies eye redness, denies eye discharge. ENT: Historian denies rhinorrhea, denies sinus pain, denies sore throat. CARDIOVASCULAR: Historian denies chest pain, no radiation, Historian denies diaphoresis, denies exercise intolerance. &a-1R&a+25V*p+0X*d8792Z*c202B*c15G*c2P*p-0X&a-25V&a+1R Name: Kota Hi : 11/17/1934 F81 MedRec: [id number] AcctNum: [id number] Prepared: SunOct 12, 2016 10:13 by Interface Page 6 of 10 pMD [facility] EMERGENCY RECORD recent pacer insertion. chronic LE edema. RESPIRATORY: Historian denies cough, denies shortness of breath, denies sputum, denies wheezing. GI: Historian reports abdominal pain, reports constipation, denies diarrhea, denies hematemesis, denies melena, reports nausea, reports vomiting. GENITOURINARY FEMALE: Historian denies hematuria, denies vaginal discharge. MUSCULOSKELETAL: Historian denies arthralgias, denies back pain, denies fall, denies injury. SKIN: Historian denies rash, denies skin changes, denies skin lesions. NEUROLOGIC: Historian denies confusion, denies dizziness, denies focal weakness, denies mental status changes. HEMO/LYMPHATIC: Historian denies abnormal blood clotting, denies easy bruising. ALLERGIC/IMMUNOLOGIC: Historian denies frequent infections, denies hives. PAST MEDICAL HISTORY MEDICAL HISTORY: Tetanus immunization up to date, Flu vaccine up to date, No past medical history of diabetes, Past medical history includes history of hyperlipidemia, Past medical history includes history of hypertension. (07:32 KMOR) FEMALE SURGICAL HISTORY: Surgical history of hysterectomy, Surgical history of thyroidectomy. 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 (07:32 KMOR) PSYCHIATRIC HISTORY: No previous psychiatric history. (07:32 KMOR) SOCIAL HISTORY: Patient drinks socially, every week, Patient denies drug use, , Patient denies alcohol use, Patient denies drug use, Patient has no smoking history. (07:32 KMOR) FAMILY HISTORY: Maternal history of malignancy. (07:32 KMOR) NOTES: I have reviewed the nursing documentation regarding PMHX, social hx, family hx, and surgical history as well as vitals and triage notes and agree. (08:43 DHAM) PHYSICAL EXAM (08:39 DHAM) CONSTITUTIONAL: Vital Signs Reviewed, Patient afebrile, Pulse normal, Blood pressure mildly elevated, Respiratory rate normal, Normal pulse oximetry, Patient appears non toxic, Patient appears pain free, Patient alert and oriented to person, place and time, Nursing notes reviewed. HEAD: Head exam included findings of head atraumatic, normocephalic. EYES: Eye exam included findings of eyelids normal to inspection, Pupils equally round and reactive to light, Extraocular muscles intact, Conjunctiva normal, Sclera normal, Eye exam included findings of anterior chamber clear. &a-1R&a+25V*p+0X*g9115I*c202B*c15G*c2P*p-0X&a-25V&a+1R Name: Kota Hi : 11/17/1934 F81 MedRec: [id number] AcctNum: [id number] Prepared: Liane Oct 12, 2016 10:13 by Interface Page 7 of 10 pMD [facility] EMERGENCY RECORD ENT: Ear exam normal, external ear normal, tympanic membranes normal, no foreign body, no drainage, no bleeding, hearing normal, Nose exam normal, no nasal deformity, no bleeding from nares, no bleeding from hypopharynx, no foreign body visualized, no septal hematoma, no septal necrosis, No turbinate mucosa discharge, Pharynx exam normal, not injected, no swelling, symmetrical, Uvula exam normal, midline, no edema, Tonsil exam normal, not enlarged, no exudates, Mouth exam normal, mucous membranes moist, no drooling, no lesions, no lacerations, no tongue elevation, teeth normal. NECK: Neck exam included findings of normal range of motion, Trachea midline, Thyroid normal, no meningeal signs, no cervical adenopathy, no tenderness, no contusions, no ecchymosis. RESPIRATORY CHEST: Respiratory exam included findings of no respiratory distress, Breath sounds clear, No wheezing, No rales, No rhonchi, Breath sounds not diminished, Chest exam included findings of chest movement symmetrical. CARDIOVASCULAR: Cardiovascular exam included findings of heart rate regular rate and rhythm, Heart sounds normal, normal S1, normal S2, no murmurs, no rub, no gallop. ABDOMEN FEMALE: Abdominal exam included findings of abdomen mildly to moderately tender in the epigastrum, Bowel sounds normal, Liver feels firm and enlarged but is not tender, Spleen normal, no distension, no pulsatile masses, no peritoneal signs though maybe a hint of diffuse rebound tenderness, no ventral hernia. BACK: Back exam normal. UPPER EXTREMITY: Upper extremity exam normal, Upper extremity exam included findings of inspection normal, no abrasions, no contusions, no deformity, no lacerations, Range of motion normal, Motor strength normal, Sensation intact, Brachial pulse normal, Radial pulse normal. LOWER EXTREMITY: Lower extremity exam included findings of inspection abnormal, bilat Unna boots in place that are supposed to be changed on Sunday and says the "sores that I had are healed they say.", Range of motion normal, Motor strength normal, Sensation intact, Pedal pulse normal, Celio's negative, no edema, no calf tenderness, no palpable cords. NEURO: Neuro exam findings include patient oriented to person, place and time, Speech normal, Gait normal, Carl coma scale 15, Memory normal, Cranial nerves intact, Deep tendon reflexes normal, no focal motor deficits, no focal sensory deficits. SKIN: Skin exam included findings of skin warm, dry, and normal in color, no rash. LYMPHATIC: Lymphatic exam normal, Lymphatic exam included findings of cervical nodes normal. PSYCHIATRIC: Psychiatric exam included findings of patient oriented to person place and time, Normal affect, Judgment normal, Insight normal, Remote memory normal, Recent memory normal, Concentration normal, No suicidal ideations, No homicidal ideations. EVENTS &a-1R&a+25V*p+0X*j2481Y*c202B*c15G*c2P*p-0X&a-25V&a+1R Name: Kota Hi : 11/17/1934 F81 MedRec: [id number] AcctNum: [id number] Prepared: SunOct 12, 2016 10:13 by Interface Page 8 of 10 pMD [facility] EMERGENCY RECORD TRANSFER: Triage to Emergency Emergency Room -03. (SunOct 12, 2016 07:30 KMOR) Removed from Emergency Emergency Room -03. (10:00 KMOR) EKG INTERPRETATION (08:47 DHAM) 12 LEAD EKG INTERPRETATION: 12 lead EKG interpreted by Emergency Department Physician at time of study, 12 lead EKG shows, paced rhythm, Rate (beats per minute): 70, with no ectopics, Conduction with, nonspecific intraventricular conduction delay, ST segments normal, normal appearing atrial sensing ventricular pacing. O2SAT INTERPRETATION (08:43 DHAM) O2SAT: Single pulse oximetry, Oxygen saturation 94%, on room air, Oxygen saturation interpretation: Normal, No intervention required. DOCTOR NOTES TEXT: Pt disimpacted by be at 0745. (08:45 DHAM) Pt had a good result with disimpaction. I think we need to r/o perf given her recent EGD. Pt signed out to Dr. Morales at 0855. She is just leaving for her CT. (08:48 DHAM) I assumed care of this patient from Dr. Arauz. In brief, the patient had presented with epigastric abdominal pain, vomiting and constipation following an EGD. Dr. Arauz performed successful disimpaction with improvement in symptoms. Work up including labs and CT have been reassuring. labs show multiple abnormalities but nothing that requires further investigation or management. CT shows cirrhotic liver, hypertrophic gallbladder, and stranding around the cecum. The patient's pain is primarily epigastric/LUQ, and I do not believe that her hypertrophic gallbladder represents acute cholecystitis, or the etiology of her symptoms. She has no lower abdominal tenderness to explain the stranding around the cecum, but if she has worsening lower abdominal pain she should return to the ED. Currently, I believe she is appropriate for discharge home and to start a laxative, and should follow up with her PMD in the next week. [facility] PATIENT STATUS: Patient has improved since arrival to emergency department. (09:38 JJA) PATIENT PLAN: The patient will be discharged, The patient will follow up with primary care physician. (09:38 JJA) DATA REVIEWED: Lab data reviewed, Xray data reviewed, Reviewed EKG. (09:38 JJA) PROBLEM LIST No recorded problems DIAGNOSIS (09:37 JJA) FINAL: PRIMARY: Constipation. DISPOSITION &a-1R&a+25V*p+0X*z3403K*c202B*c15G*c2P*p-0X&a-25V&a+1R Name: Kota Hi : 11/17/1934 F81 MedRec: [id number] AcctNum: [id number] Prepared: SunOct 12, 2016 10:13 by Interface Page 9 of 10 pMD [facility] EMERGENCY RECORD PATIENT: Disposition Type: Discharge, Disposition: *Discharge Home. (09:37 [facility]) Patient left the department. (10:00 KMOR) INSTRUCTION (09:37 [facility]) DISCHARGE: CONSTIPATION (ADULT). FOLLOWUP: DO MCGRATH JOHN SCOTT, [facility], [address] [place] [address], . SPECIAL: Start the Colace, and follow up with your regular doctor. Drink more water. If your pain gets worse, return to the ED. PRESCRIPTION (09:36 [facility]) Colace: CAPSULE : 100 mg : ORAL : Quantity: 1 Unit: tab(s) Route: ORAL Schedule: once a day Dispense: 30 Unit: cap(s) May substitute. Refills: No Refills . NOTES: No refills. IMAGING *EKG: Image captured from scanner. (09:09 LSMI) *DISCHARGE INSTRUCTIONS RECEIPT: Image captured from scanner. (09:52 KMOR) *SUPPLY CHARGE SHEET: Image captured from scanner. (09:52 KMOR) ADMIN DIGITAL SIGNATURE: MD Arauz Darren. (09:08 [facility]) MD [place] Jason. (09:42 [facility]) LEONORA Rodriguez Krista. (09:54 KMOR) [place]: [facility]=MD Arauz Darren [facility]=MD Hampton Jason KMOR=LEONORA Rodriguez Krista LSMI=[place], [employer], Janie &a-1R&a+25V*p+0X*q0972P*c202B*c15G*c2P*p-0X&a-25V&a+1R Name: Kota Hi : 11/17/1934 F81 MedRec: [id number] AcctNum: [id number] Prepared: SunOct 12, 2016 10:13 by Interface Page 10 of 10 pMD MTDD
--- NOTE | 2016-10-12 16:02 | CT ---
CT ABDOMEN AND PELVIS WITH CONTRAST: Date: 10-12-16 Technique: Spiral CT of the abdomen and pelvis was performed for evaluation of epigastric pain in t his patient who had a recent EGD. Study was done with oral and IV contrast. Coronal reconstruction s were done. Comparison: 10-02-12 CT scan. FINDINGS: There is no acute finding in the lung bases. There are no effusions. No pericardial fluid was seen around the visible portions of the heart. The esophagus can be followed into the upper abdomen. There is no evidence of free air or free flui d around it to diagnose a perforation. There is no free air in the upper abdomen. The liver is quite large and has an irregular surface consistent with cirrhosis, not a new finding. There is a little bit of perihepatic fluid present, particularly laterally. This was present on 2012 study, as well as, it just is a little more prominent today. The spleen is not enlarged. No pancreatic abnormalities were appreciated. The gallbladder is quite large measuring 10.1 cm in length. Its ayon do not appear particularly th ick. An 07-18-16 ultrasound showed no stones at that time. The abdominal aorta is normal in caliber and shows calcification within it. The kidneys show no obstruction. There appears to be a simple cyst in the upper pole of the kidney and smaller cysts in the left kidney. The bowel is nondistended with no sign of obstruction. There is an area of streaking such as might be seen with inflammatory changes adjacent to the base of the cecum in the right lower quadrant. Th is is not seen on the [address] My understanding, however, is that the patient has symptoms all refe rable to the upper abdomen and not the lower. Thus, this could be residual from a prior inflammator y episode. At any rate, it must be kept in mind should her symptoms start showing up in lower locat ion. CT of the pelvis showed no pelvic masses, fluid collections or adenopathy. Degenerative changes are prominent in the lumbar spine with central canal stenosis suggested at several of the lower lumbar levels. IMPRESSION: 1. No evidence of esophageal perforation on these scans. 2. Large cirrhotic liver with some fluid around it, but this was also present on the 2012 scan. 3. Large gallbladder, larger than prior studies. This may or may not be significant as a July ultrasound showed no stones. If symptoms point this direction, a HIDA scan could be useful to asses s function. 4. Inflammatory type streaking in the right lower quadrant near the base of the cecum that was not present in 2013. In talking with the Emergency physician, there are no real symptoms in this locati on at the moment; all symptoms are in the epigastric region. This could be the residual of prior in flammatory change. It should be kept in the back of one's mind if symptoms migrate inferiorly. Wit h the lack of symptoms in this location, there is every possibility that this is residual change fro m a prior insult, rather than being acute. 5. Not mentioned above but present is some mild concentric thickening of the anorectal mucosa that may or may not be significant. POS: HOME
== END 2016-10-12 09:45 | disposition home or self-care (01) ==
LOC: EDBD → BURERS 07:24
DX: K59.00 Constipation, unspecified (principal); I10 Essential (primary) hypertension; E78.5 Hyperlipidemia, unspecified; E11.9 Type 2 diabetes mellitus without complications; Z79.2 Long term (current) use of antibiotics; Z79.899 Other long term (current) drug therapy
CPT/HCPCS: 74177; 80053; 82272; 82553; 83605; 83690; 84443; 84484; 85025; 93005; 94760

== ENCOUNTER 2016-10-16 11:52 | Emergency (ER) | payer MEDICARE ==
[2016-10-16] MEDS ORDERED: Ondansetron HCl/PF 4 MG/2 ML Vial ONE (12:25)
[2016-10-16] MEDS ORDERED: Pantoprazole 40 MG VIAL ONE (12:25)
[2016-10-16] MEDS ORDERED: Sodium Chloride 0.9% 100 ML ONE ×2 (12:25→13:24)
[2016-10-16 12:38] LABS: #Lymphocytes 0.7 thou/uL (1.20-3.40); #Monocytes 0.6 thou/uL (0.11-0.59); #Neutrophils 6.1 thou/uL (1.40-6.50); %Basophils 0.6 % (0.0-1.0); %Eosinophils 0.5 % (0.0-10.0); %Monocytes 8.1 % (0.0-10.0); Hematocrit 33.2 % (36.0-47.0); Mean Platelet Volume 8.3 fL (7.4-10.4); Red Blood Cell (RBC) Count 3.31 mill/uL (4.20-5.40); White Blood Cell (WBC) Count 7.5 thou/uL (4.8-10.8)
[2016-10-16 12:59] LABS: ALT (SGPT) 24 U/L (0-55); AST (SGOT) 42 U/L (5-34); Alkaline Phosphatase 119 U/L (40-150); Anion Gap 14 mmol/L (10-20); BUN (Urea Nitrogen) 37 mg/dL (9.8-20.1); Bilirubin, Total 1.9 mg/dL (0.2-1.2); Calc. Creatinine Clearance 0 mL/min (70-130); Calcium 7.5 mg/dL (7.8-10.44); Carbon Dioxide 23 mmol/L (23-31); Chloride 101 mmol/L (98-107); Estimated GFR-MDRD 36; Lipase 36 U/L (8-78); Protein, Total 8.9 g/dL (5.8-8.1)
[2016-10-16 13:19] LABS: Bilirubin Negative (Negative); Blood, Urine Negative (Negative); Glucose, Urine (Dipstick) Negative (Negative); Ketone, Urine Negative (Negative); Nitrite Positive (Negative); Protein, Urine (Dipstick) 100 mg/dL (Neg-Trace)
[2016-10-16 13:20] LABS: Bacteria/HPF None Seen HPF (None Seen); RBC/HPF 0-3 HPF (0-3); Squamous Epithelial 0-3 HPF (0-3); WBC/HPF None Seen HPF (0-3)
[2016-10-16] MEDS ORDERED: Piperacillin/Tazobactam 3.375 GM VIAL ONE (13:24)
--- NOTE | 2016-10-16 13:59 | ERRECORD ---
[facility] EMERGENCY RECORD HPI ABDOMINAL PAIN (12:56 MBRI) CHIEF COMPLAINTS: Patient presents for evaluation of abdominal pain. HISTORIAN: History provided by patient, History provided by patient's family. LOCATION FEMALE: Symptoms are localized, most severe in the upper abdomen, no radiation, No migration of pain. QUALITY: Pain is dull in nature, described as aching. SEVERITY: Maximum severity of symptoms moderate, Currently symptoms are moderate. TIME COURSE: Gradual onset of symptoms, started on Sunday of last week. Pt was seen last Sunday and had EGD done, then presented to the ED on with constipation and this was disimpacted. The next day this pain started and has continued since that time., Symptoms are constant. ASSOCIATED WITH FEMALE: No associated recent antibiotic use, No associated chills, Associated with constipation, currently resolved, No associated diarrhea, No associated fever, No associated flank pain, No associated hematemesis, No associated hematuria, No associated loss of appetite, No associated melena, No associated nausea, No associated urinary tract infection signs or symptoms, No associated vomiting. RELIEVED BY: Patient's condition relieved by nothing. EXACERBATED BY: Patient's condition exacerbated by nothing, Patient's condition not exacerbated by food, Patient's condition not exacerbated by movement, Patient's condition not exacerbated by supine position, Patient's condition not exacerbated by upright position, Patient's condition not exacerbated by walking. RISK FACTORS FEMALE: No ectopic risk factors present, Abdominal aortic aneurysm risk factors, include age over 40 years, Coronary artery disease risk factors, include hypertension. ROS CONSTITUTIONAL: Negative constitutional review of systems, Historian denies chills, denies fever. (12:58 MBRI) EYES: Negative eye review of systems. (12:58 MBRI) ENT: Historian denies rhinorrhea, denies sore throat. (12:58 MBRI) CARDIOVASCULAR: Historian denies chest pain, denies dyspnea on exertion. (12:58 MBRI) RESPIRATORY: Historian denies cough, denies shortness of breath. (12:58 MBRI) GI: Historian reports abdominal pain, denies anorexia, denies appetite changes, reports constipation, denies diarrhea, denies hematemesis, denies hematochezia, denies melena, denies nausea, denies vomiting. (12:58 MBRI) GENITOURINARY FEMALE: Negative genitourinary review of systems. (12:59 MBRI) MUSCULOSKELETAL: Historian denies injury, Denies any musculoskeletal pain. (12:58 MBRI) SKIN: Negative skin review of systems, Historian denies skin &a-1R&a+25V*p+0X*[id number]*c202B*c15G*c2P*p-0X&a-25V&a+1R Name: Kota Hi : 1935 F80 MedRec: [id number] AcctNum: [id number] Prepared: SunOct 17, 2016 09:28 by Interface Page 1 of 4 pMD [facility] EMERGENCY RECORD changes. (12:58 MBRI) NEUROLOGIC: Negative neurologic review of systems, Historian denies focal weakness, denies sensory changes. (12:58 MBRI) PAST MEDICAL HISTORY (12:01 KMOR) MEDICAL HISTORY: Tetanus immunization up to date, Flu vaccine up to date, No past medical history of diabetes, Past medical history includes history of hyperlipidemia, Past medical history includes history of hypertension. FEMALE SURGICAL HISTORY: Surgical history of hysterectomy, Surgical history of thyroidectomy. 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 PSYCHIATRIC HISTORY: No previous psychiatric history. SOCIAL HISTORY: Patient drinks socially, every week, Patient denies drug use, , Patient denies alcohol use, Patient denies drug use, Patient has no smoking history. FAMILY HISTORY: Maternal history of malignancy. KNOWN ALLERGIES No Known Drug Allergies CURRENT MEDICATIONS (12:01 KMOR) None meloxicam: TABLET : Strength - 7.5 mg : ORAL Patient Dose: 1 tab(s) Oral once a day. Synthroid: TABLET : Strength - 100 mcg : ORAL Patient Dose: 1 tab(s) Oral once a day. torsemide: TABLET : Strength - 100 mg : ORAL Patient Dose: 1 tab(s) Oral once a day. spironolactone: TABLET : Strength - 25 mg : ORAL Patient Dose: 1 tab(s) Oral 2 times a day. azaTHIOprine: TABLET : Strength - 50 mg : ORAL Patient Dose: 1 tab(s) Oral once a day. Calcium 600 + D(3): TABLET : Strength - 600 mg calcium (1,500 mg)-200 unit : ORAL Patient Dose: 1 tab(s) Oral once a day. Tenormin: TABLET : Strength - 50 mg : ORAL Patient Dose: 1 tab(s) Oral once a day. pantoprazole: TABLET, DELAYED RELEASE (ENTERIC COATED) : Strength - 40 mg : ORAL Patient Dose: once a day (in the morning). ProAir HFA: HFA AEROSOL WITH ADAPTER (GRAM) : Strength - 90 mcg : INHALATION Patient Dose: As Needed. tiZANidine: &a-1R&a+25V*p+0X*[id number]*c202B*c15G*c2P*p-0X&a-25V&a+1R Name: Kota Hi : 1935 F80 MedRec: [id number] AcctNum: [id number] Prepared: SunOct 17, 2016 09:28 by Interface Page 2 of 4 pMD [facility] EMERGENCY RECORD CAPSULE : Strength - 2 mg : ORAL Patient Dose: UNK. Colace: CAPSULE : Strength - 100 mg : ORAL Patient Dose: 1 tab(s) Oral once a day. VITAL SIGNS VITAL SIGNS: Pain: 5, Time: 10/16/2016 11:55. (11:55 KMOR) BP: 149/93, Pulse: 90, Resp: 20, Temp: 98.8 (Oral), O2 sat: 96 on Room Air, Time: 10/16/2016 12:01. (12:01 KMOR) BP: 124/68, Pulse: 82, Resp: 16, Pain: 5, O2 sat: 100 on ra, Time: 10/16/2016 12:55. (12:55 JSMI) Temp: 98.0, Pain: 0, Time: 10/16/2016 13:29. (13:29 KMOR) BP: 119/70, Pulse: 80, Resp: 14, Temp: 98.1 (Oral), Pain: 2, O2 sat: 94 on Room Air, Time: 10/16/2016 13:30. (13:30 JSMI) PHYSICAL EXAM (12:58 MBRI) CONSTITUTIONAL: Vital Signs Reviewed, Nursing notes reviewed. HEAD: Head exam included findings of head atraumatic, normocephalic. EYES: Eye exam included findings of eyelids normal to inspection, Pupils equally round and reactive to light, Extraocular muscles intact. ENT: Ear exam normal, external ear normal, tympanic membranes normal, Pharynx exam normal. NECK: Neck exam normal, no cervical adenopathy, no tenderness. RESPIRATORY CHEST: Respiratory exam included findings of no respiratory distress, Breath sounds clear, No wheezing, No rales, No rhonchi. CARDIOVASCULAR: Cardiovascular exam included findings of heart rate regular rate and rhythm, Heart sounds normal, Carotids normal. ABDOMEN FEMALE: Abdominal exam included findings of abdomen nontender, Bowel sounds normal, no peritoneal signs, no rigidity, no guarding, no rebound. BACK: Back exam included findings of normal inspection, no tenderness. UPPER EXTREMITY: Upper extremity exam included findings of inspection normal, Radial pulse normal, no cyanosis, no clubbing, no edema. LOWER EXTREMITY: Lower extremity exam included findings of inspection normal, femoral pulses normal, no cyanosis, no clubbing, no edema, no tenderness noted. NEURO: Neuro exam findings include patient oriented to person, place and time, Speech normal, no focal motor deficits. SKIN: Skin exam included findings of skin warm, dry, and normal in color. RADIOLOGYINTERPRETATION (13:29 MBRI) ABDOMEN: Obstructive series films negative, normal small bowel gas pattern, no air fluid levels. &a-1R&a+25V*p+0X*l9815R*c202B*c15G*c2P*p-0X&a-25V&a+1R Name: Kota Hi : 1935 F80 MedRec: [id number] AcctNum: [id number] Prepared: SunOct 17, 2016 09:28 by Interface Page 3 of 4 pMD [facility] EMERGENCY RECORD LOCKSTITCH HEMMER: Preliminary review of x-rays by, ED Physician. MEDICATION ADMINISTRATION SUMMARY Drug Name: Zosyn, Dose Ordered: 3.375 g, Route: IV Piggy Back, Status: Given, Time: 13:29 10/16/2016, Drug Name: Protonix intravenous, Dose Ordered: 40 mg, Route: IV Push, Status: Given, Time: 12:57 10/16/2016, Drug Name: morphine injection, Dose Ordered: 8 mg, Route: IV Push, Status: Given, Time: 12:53 10/16/2016, Drug Name: ondansetron HCl intravenous, Dose Ordered: 4 mg, Route: IV Push, Status: Given, Time: 12:50 10/16/2016, Detailed record available in Medication Service section. DOCTOR NOTES (13:29 MBRI) RE-EVALUATION: The patient's condition has stabilized. TEXT: Pt with findings of increased GB based on the last CT scan 10/12. Today with elevated Tbili and ttp in the upper abd and RUQ. Rec further testing and possible Surg eval. discussed with Dr Shahid, accepts for further care and evaluation. Pt stable for ground EMS. Plan discussed with pt and family and they agree. Pt symptoms improved and abx started IV prior to transfer. PATIENT STATUS: Patient has improved since arrival to emergency department. PATIENT PLAN: The patient requires a transfer and will be transferred, per physician request, due to availability of specialty care, Transfer form completed. PROBLEM LIST No recorded problems DIAGNOSIS (13:21 MBRI) FINAL: PRIMARY: ACUTE CHOLECYSTITIS, ADDITIONAL: UTI. PRESCRIPTION No recorded prescriptions DISPOSITION PATIENT: Disposition Type: Transfer, Disposition: Transfer to [facility], Condition: Good. (13:21 MBRI) Patient left the department. (13:50 KMOR) [place]: JSMI=LEONORA Lawton, Sandra KMOR=LEONORA Rodriguez, Deyanira MBRI=DO To Matthew &a-1R&a+25V*p+0X*d2900N*c202B*c15G*c2P*p-0X&a-25V&a+1R Name: Kota Hi Stacy : 1935 F80 MedRec: [id number] AcctNum: [id number] Prepared: Sherwin Oct 17, 2016 09:28 by Interface Page 4 of 4 pMD MTDD
--- NOTE | 2016-10-16 14:05 | PICIS ---
[facility] EMERGENCY RECORD TRIAGE (SunOct 16, 2016 12:00 KMOR) TRIAGE NOTES: Abdominal soreness x2 days, seen here for constipation sp scope on morning. (SunOct 16, 2016 12:00 KMOR) PATIENT: NAME: Kota Hi, AGE: 80, GENDER: female, : Sun1935, TIME OF GREET: SunOct 16, 2016 11:53, PREFERRED LANGUAGE: Telugu, ETHNICITY: Not or , ECODE BILLING MAP: [facility], SSN: [id number], Zip Code: [address], KG WEIGHT: 122.47, PHONE: , , , PERSON ID: [id number], PAYMENT: [employer], PCP: DO MCGRATH JOHN SCOTT. (SunOct 16, 2016 12:00 KMOR) COMPLAINT: Abdominal Pain. (SunOct 16, 2016 12:00 KMOR) ADMISSION: URGENCY: 3 Urgent, ADMISSION SOURCE: Home, TRANSPORT: CAR, BED: HOLD. (SunOct 16, 2016 12:00 KMOR) ASSESSMENT: Assessment: A&O4. RR EVEN AND UNLABORED. (12:01 KMOR) IMMUNIZATIONS: Flu vaccine up to date, Tetanus not up to date, Pneumococcal vaccine up to date. (12:02 KMOR) SIRS SCORING: Heart Rate 55-109 (0), Temp range 96.8-101.1 (0), respiratory rate 12-24 (0), Mental Status altered: no (0), Infection or Suspected Infection: No. (12:03 KMOR) LMP: LMP: Hysterectomy. (12:03 KMOR) PROVIDERS: TRIAGE NURSE: Deyanira Rodriguez RN. (SunOct 16, 2016 12:00 KMOR) VITAL SIGNS: Pain 5, Time 10/16/2016 11:55. (11:55 KMOR) BP 149/93, Pulse 90, Resp 20, Temp 98.8, (Oral), O2 Sat 96, on Room Air, Time 10/16/2016 12:01. (12:01 KMOR) PREVIOUS VISIT ALLERGIES: No Known Drug Allergies. (SunOct 16, 2016 12:00 KMOR) No Known Drug Allergies. (12:01 KMOR) KNOWN ALLERGIES No Known Drug Allergies CURRENT MEDICATIONS (12:01 KMOR) None meloxicam: TABLET : Strength - 7.5 mg : ORAL Patient Dose: 1 tab(s) Oral once a day. Synthroid: TABLET : Strength - 100 mcg : ORAL Patient Dose: 1 tab(s) Oral once a day. torsemide: TABLET : Strength - 100 mg : ORAL Patient Dose: 1 tab(s) Oral once a day. spironolactone: TABLET : Strength - 25 mg : ORAL Patient Dose: 1 tab(s) Oral 2 times a day. azaTHIOprine: TABLET : Strength - 50 mg : ORAL &a-1R&a+25V*p+0X*w2275H*c202B*c15G*c2P*p-0X&a-25V&a+1R Name: Kota Hi : 1935 F80 MedRec: [id number] AcctNum: [id number] Prepared: Sherwin Oct 17, 2016 09:28 by Interface Page 1 of 12 pMD [facility] EMERGENCY RECORD Patient Dose: 1 tab(s) Oral once a day. Calcium 600 + D(3): TABLET : Strength - 600 mg calcium (1,500 mg)-200 unit : ORAL Patient Dose: 1 tab(s) Oral once a day. Tenormin: TABLET : Strength - 50 mg : ORAL Patient Dose: 1 tab(s) Oral once a day. pantoprazole: TABLET, DELAYED RELEASE (ENTERIC COATED) : Strength - 40 mg : ORAL Patient Dose: once a day (in the morning). ProAir HFA: HFA AEROSOL WITH ADAPTER (GRAM) : Strength - 90 mcg : INHALATION Patient Dose: As Needed. tiZANidine: CAPSULE : Strength - 2 mg : ORAL Patient Dose: UNK. Colace: CAPSULE : Strength - 100 mg : ORAL Patient Dose: 1 tab(s) Oral once a day. VITAL SIGNS VITAL SIGNS: Pain: 5, Time: 10/16/2016 11:55. (11:55 KMOR) BP: 149/93, Pulse: 90, Resp: 20, Temp: 98.8 (Oral), O2 sat: 96 on Room Air, Time: 10/16/2016 12:01. (12:01 KMOR) BP: 124/68, Pulse: 82, Resp: 16, Pain: 5, O2 sat: 100 on ra, Time: 10/16/2016 12:55. (12:55 [facility]) Temp: 98.0, Pain: 0, Time: 10/16/2016 13:29. (13:29 KMOR) BP: 119/70, Pulse: 80, Resp: 14, Temp: 98.1 (Oral), Pain: 2, O2 sat: 94 on Room Air, Time: 10/16/2016 13:30. (13:30 [facility]) NURSING ASSESSMENT: ABDOMEN (12:09 KMOR) CONSTITUTIONAL: Patient arrives, via hospital wheelchair, Gait steady, History obtained from patient, Patient appears comfortable, Patient cooperative, Patient alert, Oriented to person, place and time, Skin warm, Skin dry, Skin normal in color, Mucous membranes pink, Mucous membranes moist, Patient is well-groomed, Patient complains of Abdominal pain, Reports abdominal soreness after disimpaction 4 days ago. Reports having normal BM since event. No urinary complaints. PAIN: aching pain, on a scale 0-10 patient rates pain as 5. ABDOMEN: Abdomen assessment findings include abdomen symmetrical, Abdomen soft, Associated with nausea, no associated constipation, Date of last bowel movement: 10/16/2016. LMP: Last menstrual period not applicable due to hysterectomy history. GENITOURINARY FEMALE: no associated urinary complaints. NOTES: Patient tolerated procedure well. NURSING ASSESSMENT: FALL RISK (13:12 KMOR) &a-1R&a+25V*p+0X*s5015I*c202B*c15G*c2P*p-0X&a-25V&a+1R Name: Kota Hi : 1935 F80 MedRec: [id number] AcctNum: [id number] Prepared: SunOct 17, 2016 09:28 by Interface Page 2 of 12 pMD [facility] EMERGENCY RECORD FALL RISK: Fall risk assessment findings include: no history of falls (0), No bed rest greater than 2 days (0), No use of level of consciousness altering agents with mentation or cognitive changes (0), No change in blood pressure (0), No sensory deficits (0), Impaired mobility (3), No neurologic diagnosis (0), Elimination problems (3), No confusion (0), Total score 6, Fall risk. NURSING ASSESSMENT: SKIN (13:16 KMOR) SKIN: Skin assessment findings include skin warm, Skin dry, Skin normal in color, Inspection findings include no bruising, Inspection findings include no contusion, Inspection findings include: No pressure ulcer to the shoulder, Inspection findings include no pressure ulcer to the elbow, Inspection findings include no pressure ulcers to the hip, Inspection findings include no pressure ulcer to the sacrum, Inspection findings include no pressure ulcer to the heel, Inspection findings include no pressure ulcer, Inspection findings include no pressure ulcer, Inspection findings include no signs of infection, Inspection findings include swelling, to BILATERAL LOWER LEGS, Notes: Bilateral lower legs wrapped with compression dressing from home health nurse. Dressing changed today. MALIHA SCALE: (3) Sensory perception slightly limited, (3) Skin is occasionally moist, (3) Patient walks occasionally, (3) Slightly limited mobility, (3) Adequate nutrition, (2) Patient has potential problem moving, Maliha Risk Total: 17. NOTES: Patient tolerated procedure well. NURSING PROCEDURE: BEDSIDE SIRS TESTING (13:12 KMOR) SCORES: Heart Rate 55-109 (0), Temp range 96.8-101.1 (0), respiratory rate 12-24 (0), Mental Status altered: no (0), Infection or Suspected Infection: No. NURSING PROCEDURE: IV (12:31 KMOR) PATIENT IDENITIFIER: Patient actively involved in identification process, Patient's identity verified by patient stating name, Patient's identity verified by patient stating date. IV SITE 1: IV therapy indicated for hydration, IV therapy indicated for medication administration, IV established, to the left antecubital, using a 20 gauge catheter, in one attempt, Saline lock established, Flushed with normal saline (mls): 10cc, Labs drawn at time of placement, labeled in the presence of the patient and sent to lab. NOTES: Patient tolerated procedure well. NURSING PROCEDURE: TRANSFER TRANSFER: Reason for transfer need for specialized care, Accepting institution: ACUTE CHOLECYSTITIS, UTI, Accepting physician: SIVA, Referring physician: ZAC, Transported by urgent ambulance, &a-1R&a+25V*p+0X*o6912W*c202B*c15G*c2P*p-0X&a-25V&a+1R Name: Koat Hi : 1935 F80 MedRec: [id number] AcctNum: [id number] Prepared: SunOct 17, 2016 09:28 by Interface Page 3 of 12 pMD [facility] EMERGENCY RECORD accompanied by emergency medical services personnel, Summary of Care printed, Copy of patient record prepared for receiving facility, Copy of diagnostic studies, Status of patient's valuables documented on chart, Medication reconciliation form prepared and sent to receiving facility, Patient consent for transfer signed, Family member contacted, AT BEDSIDE. (13:29 KMOR) BELONGINGS: Belongings remain with patient, Valuables remain with patient. (13:29 KMOR) NOTES: Notes: 1315 Denise at transfer center contact. 1916. Dr. Shahid accepted, Yani Garza AD approval. 1329 EMS contacted for transport. 1339 EMS at bedside. (13:40 KMOR) VITAL SIGNS: Temp: 98.0, Pain: 0. (13:29 KMOR) NURSING PROCEDURE: TRANSPORT TO TESTS (12:30 KMOR) PATIENT IDENTIFIER: Patient actively involved in identification process, Patient's identity verified by patient stating name, Patient's identity verified by patient stating date. TRANSPORT TO TESTS: Transport indicated to facilitate diagnosis, Patient transported to x-ray, via cart, Accompanied by x-ray train control electronic technician. NOTES: Patient tolerated procedure well. NURSING PROCEDURE: URINE COLLECTION (12:55 [facility]) URINE COLLECTION FEMALE: Urine collected by straight cath, using an 8 fr catheter, in one attempt, urine orange in color, and clear, sediment noted. VITAL SIGNS: BP: 124, / 68, Pulse: 82, Resp: 16, Pain: 5, O2 sat: 100, on: ra. ORDER DETAILS Order Name: CATH STRAIGHT ED, Status: Done, Time: 12:58 10/16/2016, User: RONIT, - Ordered for: DO To Matthew, - Entered by: LEONORA Rodriguez, Deyanira - Claribel Oct 16, 2016 12:33, - Quantity: 1, Order Name: CBC with Differential, Status: Active, Time: 12:19 10/16/2016, User: JAC, - Ordered for: DO To Matthew, - Entered by: DO To Matthew - SunOct 16, 2016 12:19, - Quantity: 1, Order Name: Comprehensive Metabolic Panel, Status: Active, Time: 12:19 10/16/2016, User: JAC, - Ordered for: DO To Matthew, - Entered by: DO To Matthew - [facility] Oct 16, 2016 12:19, - Quantity: 1, Order Name: Culture, Urine, Status: Active, Time: 13:26 10/16/2016, User: JAC, - Ordered for: DO To Matthew, - Entered by: DO To Matthew - SunOct 16, 2016 13:26, &a-1R&a+25V*p+0X*k1390F*c202B*c15G*c2P*p-0X&a-25V&a+1R Name: Hi Kota J : 1935 F80 MedRec: [id number] AcctNum: [id number] Prepared: SunOct 17, 2016 09:28 by Interface Page 4 of 12 pMD [facility] EMERGENCY RECORD - Quantity: 1, Order Name: Lipase, Status: Active, Time: 12:19 10/16/2016, User: JAC, - Ordered for: DO To Matthew, - Entered by: DO To Matthew - [facility] Oct 16, 2016 12:19, - Quantity: 1, Order Name: SALINE LOCK, Status: Done, Time: 12:30 10/16/2016, User: DORY, - Ordered for: DO To Matthew, - Entered by: DO To Matthew - SunOct 16, 2016 12:19, - Quantity: 1, Order Name: Urinalysis w/ Rflx Microscopic, Status: Active, Time: 12:19 10/16/2016, User: JAC, - Ordered for: DO To Matthew, - Entered by: DO To Matthew - [facility] Oct 16, 2016 12:19, - Quantity: 1, Order Name: XR Abdomen 2 View/1 View Cxr, Status: Active, Time: 12:19 10/16/2016, User: JAC, - Ordered for: DO To Matthew, - Entered by: DO To Matthew - SunOct 16, 2016 12:19, - Quantity: 1. MEDICATION ADMINISTRATION SUMMARY Drug Name: Zosyn, Dose Ordered: 3.375 g, Route: IV Piggy Back, Status: Given, Time: 13:29 10/16/2016, Drug Name: Protonix intravenous, Dose Ordered: 40 mg, Route: IV Push, Status: Given, Time: 12:57 10/16/2016, Drug Name: morphine injection, Dose Ordered: 8 mg, Route: IV Push, Status: Given, Time: 12:53 10/16/2016, Drug Name: ondansetron HCl intravenous, Dose Ordered: 4 mg, Route: IV Push, Status: Given, Time: 12:50 10/16/2016, Detailed record available in Medication Service section. MEDICATION SERVICE morphine injection: Order: morphine injection (morphine sulfate) - Dose: 8 mg : IV Push Schedule: Now Ordered by: Pollo To DO Entered by: Pollo To DO SunOct 16, 2016 12:21 , Acknowledged by: Sandra Lawton RN SunOct 16, 2016 12:23 Documented as given by: Sandra Lawton RN SunOct 16, 2016 12:53 Patient, Medication, Dose, Route and Time verified prior to administration. IV SITE #1 IVP, initial medication, Slowly, Catheter placement confirmed via flush prior to administration, IV site without signs or symptoms of infiltration during medication administration, No swelling during administration, No drainage during administration, IV flushed after administration, Correct patient, time, route, dose and medication confirmed prior to administration, Patient advised of actions and side-effects prior to administration, Allergies confirmed &a-1R&a+25V*p+0X*d3367Y*c202B*c15G*c2P*p-0X&a-25V&a+1R Name: Kota Hi : 1935 F80 MedRec: [id number] AcctNum: [id number] Prepared: SunOct 17, 2016 09:28 by Interface Page 5 of 12 pMD [facility] EMERGENCY RECORD and medications reviewed prior to administration, Patient in position of comfort, Side rails up, Cart in lowest position, Family at bedside. : Follow Up : Response assessment performed, No signs or symptoms of allergic reaction noted, Decreased pain, _IV SITE #1:_. (13:24 KMOR) ondansetron HCl intravenous: Order: ondansetron HCl intravenous (ondansetron HCl) - Dose: 4 mg : IV Push Ordered by: Pollo To DO Entered by: Pollo To DO SunOct 16, 2016 12:21 , Acknowledged by: Sandra Lawton RN SunOct 16, 2016 12:23 Documented as given by: Sandra Lawton RN SunOct 16, 2016 12:50 Patient, Medication, Dose, Route and Time verified prior to administration. IV SITE #1 IVP, initial medication, Slowly, Catheter placement confirmed via flush prior to administration, IV site without signs or symptoms of infiltration during medication administration, No swelling during administration, No drainage during administration, IV flushed after administration, Correct patient, time, route, dose and medication confirmed prior to administration, Patient advised of actions and side-effects prior to administration, Allergies confirmed and medications reviewed prior to administration, Patient in position of comfort, Side rails up, Cart in lowest position, Family at bedside. : Follow Up : Response assessment performed, No signs or symptoms of allergic reaction noted, _IV SITE #1:_. (13:25 KMOR) Protonix intravenous: Order: Protonix intravenous (pantoprazole sodium) - Dose: 40 mg : IV Push Ordered by: Pollo To DO Entered by: Pollo To DO SunOct 16, 2016 12:21 , Acknowledged by: Sandra Lawton RN SunOct 16, 2016 12:23 Documented as given by: Sandra Lawton RN SunOct 16, 2016 12:57 Patient, Medication, Dose, Route and Time verified prior to administration. IV SITE #1 IVPB or drip, initial infusion, IVPB mixed in: 100ml, Fluid: 0.9NS, via gravity tubing, Catheter placement confirmed via flush prior to administration, IV site without signs or symptoms of infiltration during medication administration, No swelling during administration, No drainage during administration, IV flushed after administration, Correct patient, time, route, dose and medication confirmed prior to administration, Patient advised of actions and side-effects prior to administration, Allergies confirmed and medications reviewed prior to administration, Patient in position of comfort, Side rails up, Cart in lowest position, Family at bedside. : Follow Up : _IV SITE #1:_, Medication infusion discontinued, on SunOct 16, 2016 13:20, 25 minutes, ., Total amount infused: 100ML, IV Line flushed after administration. (13:25 KMOR) Zosyn: Order: Zosyn (piperacillin sodium/tazobactam sodium) - Dose: 3.375 g : IV Piggy Back Schedule: Now &a-1R&a+25V*p+0X*w4213O*c202B*c15G*c2P*p-0X&a-25V&a+1R Name: Kota Hi : 1935 F80 MedRec: [id number] AcctNum: [id number] Prepared: SunOct 17, 2016 09:28 by Interface Page 6 of 12 pMD [facility] EMERGENCY RECORD Ordered by: Pollo To DO Entered by: Pollo To DO SunOct 16, 2016 13:20 , Acknowledged by: Sandra Lawton RN SunOct 16, 2016 13:23 Documented as given by: Sandra Lawton RN SunOct 16, 2016 13:29 Patient, Medication, Dose, Route and Time verified prior to administration. IV SITE #1 IVPB or drip, subsequent infusion, IVPB mixed in: 100ml, Fluid: 0.9NS, via primary tubing, Catheter placement confirmed via flush prior to administration, IV site without signs or symptoms of infiltration during medication administration, No swelling during administration, No drainage during administration, IV flushed after administration, Correct patient, time, route, dose and medication confirmed prior to administration, Patient advised of actions and side-effects prior to administration, Allergies confirmed and medications reviewed prior to administration, Patient in position of comfort, Side rails up, Cart in lowest position, Family at bedside. : Follow Up : Response assessment performed, No signs or symptoms of allergic reaction noted, _IV SITE #1:_, Medication infusion continued upon transfer from emergency department, on SunOct 16, 2016 13:45, 20 minutes, ., Total amount infused: 29ml. (13:44 KMOR) HPI ABDOMINAL PAIN (12:56 MBRI) CHIEF COMPLAINTS: Patient presents for evaluation of abdominal pain. HISTORIAN: History provided by patient, History provided by patient's family. LOCATION FEMALE: Symptoms are localized, most severe in the upper abdomen, no radiation, No migration of pain. QUALITY: Pain is dull in nature, described as aching. SEVERITY: Maximum severity of symptoms moderate, Currently symptoms are moderate. TIME COURSE: Gradual onset of symptoms, started on Sunday of last week. Pt was seen last Sunday and had EGD done, then presented to the ED on with constipation and this was disimpacted. The next day this pain started and has continued since that time., Symptoms are constant. ASSOCIATED WITH FEMALE: No associated recent antibiotic use, No associated chills, Associated with constipation, currently resolved, No associated diarrhea, No associated fever, No associated flank pain, No associated hematemesis, No associated hematuria, No associated loss of appetite, No associated melena, No associated nausea, No associated urinary tract infection signs or symptoms, No associated vomiting. RELIEVED BY: Patient's condition relieved by nothing. EXACERBATED BY: Patient's condition exacerbated by nothing, Patient's condition not exacerbated by food, Patient's condition not exacerbated by movement, Patient's condition not exacerbated by supine position, Patient's condition not exacerbated by upright position, Patient's condition not exacerbated by walking. RISK FACTORS FEMALE: No ectopic risk factors present, Abdominal aortic aneurysm risk factors, &a-1R&a+25V*p+0X*z7243I*c202B*c15G*c2P*p-0X&a-25V&a+1R Name: Kota Hi : 1935 F80 MedRec: [id number] AcctNum: [id number] Prepared: Sherwin Oct 17, 2016 09:28 by Interface Page 7 of 12 pMD [facility] EMERGENCY RECORD include age over 40 years, Coronary artery disease risk factors, include hypertension. ROS CONSTITUTIONAL: Negative constitutional review of systems, Historian denies chills, denies fever. (12:58 MBRI) EYES: Negative eye review of systems. (12:58 MBRI) ENT: Historian denies rhinorrhea, denies sore throat. (12:58 MBRI) CARDIOVASCULAR: Historian denies chest pain, denies dyspnea on exertion. (12:58 MBRI) RESPIRATORY: Historian denies cough, denies shortness of breath. (12:58 MBRI) GI: Historian reports abdominal pain, denies anorexia, denies appetite changes, reports constipation, denies diarrhea, denies hematemesis, denies hematochezia, denies melena, denies nausea, denies vomiting. (12:58 MBRI) GENITOURINARY FEMALE: Negative genitourinary review of systems. (12:59 MBRI) MUSCULOSKELETAL: Historian denies injury, Denies any musculoskeletal pain. (12:58 MBRI) SKIN: Negative skin review of systems, Historian denies skin changes. (12:58 MBRI) NEUROLOGIC: Negative neurologic review of systems, Historian denies focal weakness, denies sensory changes. (12:58 MBRI) PAST MEDICAL HISTORY (12:01 KMOR) MEDICAL HISTORY: Tetanus immunization up to date, Flu vaccine up to date, No past medical history of diabetes, Past medical history includes history of hyperlipidemia, Past medical history includes history of hypertension. FEMALE SURGICAL HISTORY: Surgical history of hysterectomy, Surgical history of thyroidectomy. 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 PSYCHIATRIC HISTORY: No previous psychiatric history. SOCIAL HISTORY: Patient drinks socially, every week, Patient denies drug use, , Patient denies alcohol use, Patient denies drug use, Patient has no smoking history. FAMILY HISTORY: Maternal history of malignancy. PHYSICAL EXAM (12:58 MBRI) CONSTITUTIONAL: Vital Signs Reviewed, Nursing notes reviewed. HEAD: Head exam included findings of head atraumatic, normocephalic. EYES: Eye exam included findings of eyelids normal to inspection, Pupils equally round and reactive to light, Extraocular muscles intact. ENT: Ear exam normal, external ear normal, tympanic membranes normal, Pharynx exam normal. NECK: Neck exam normal, no cervical adenopathy, no tenderness. RESPIRATORY CHEST: Respiratory exam included findings of no &a-1R&a+25V*p+0X*s6139W*c202B*c15G*c2P*p-0X&a-25V&a+1R Name: Kota Hi : 1935 F80 MedRec: [id number] AcctNum: [id number] Prepared: Sherwin Oct 17, 2016 09:28 by Interface Page 8 of 12 pMD [facility] EMERGENCY RECORD respiratory distress, Breath sounds clear, No wheezing, No rales, No rhonchi. CARDIOVASCULAR: Cardiovascular exam included findings of heart rate regular rate and rhythm, Heart sounds normal, Carotids normal. ABDOMEN FEMALE: Abdominal exam included findings of abdomen nontender, Bowel sounds normal, no peritoneal signs, no rigidity, no guarding, no rebound. BACK: Back exam included findings of normal inspection, no tenderness. UPPER EXTREMITY: Upper extremity exam included findings of inspection normal, Radial pulse normal, no cyanosis, no clubbing, no edema. LOWER EXTREMITY: Lower extremity exam included findings of inspection normal, femoral pulses normal, no cyanosis, no clubbing, no edema, no tenderness noted. NEURO: Neuro exam findings include patient oriented to person, place and time, Speech normal, no focal motor deficits. SKIN: Skin exam included findings of skin warm, dry, and normal in color. LAB INTERPRETATION (13:29 MBRI) INTERPRETATION: I reviewed the lab results. EVENTS TRANSFER: Triage to Emergency Holding. (12:00 KMOR) Emergency Holding to Emergency Room -02. (12:01 KMOR) Removed from Emergency Emergency Room -02. (13:50 KMOR) RADIOLOGYINTERPRETATION (13:29 MBRI) ABDOMEN: Obstructive series films negative, normal small bowel gas pattern, no air fluid levels. EDUCATION INSTRUCTOR: Preliminary review of x-rays by, ED Physician. O2SAT INTERPRETATION (12:06 MBRI) O2SAT: Oxygen saturation interpretation: Normal. DOCTOR NOTES (13:29 MBRI) RE-EVALUATION: The patient's condition has stabilized. TEXT: Pt with findings of increased GB based on the last CT scan 10/12. Today with elevated Tbili and ttp in the upper abd and RUQ. Rec further testing and possible Surg eval. discussed with Dr Shahid, accepts for further care and evaluation. Pt stable for ground EMS. Plan discussed with pt and family and they agree. Pt symptoms improved and abx started IV prior to transfer. PATIENT STATUS: Patient has improved since arrival to emergency department. PATIENT PLAN: The patient requires a transfer and will be transferred, per physician request, due to availability of specialty care, Transfer form completed. &a-1R&a+25V*p+0X*t6130N*c202B*c15G*c2P*p-0X&a-25V&a+1R Name: Kota Hi : 1935 F80 MedRec: [id number] AcctNum: [id number] Prepared: SunOct 17, 2016 09:28 by Interface Page 9 of 12 pMD [facility] EMERGENCY RECORD PROBLEM LIST No recorded problems DIAGNOSIS (13:21 MBRI) FINAL: PRIMARY: ACUTE CHOLECYSTITIS, ADDITIONAL: UTI. DISPOSITION PATIENT: Disposition Type: Transfer, Disposition: Transfer to [facility], Condition: Good. (13:21 MBRI) Patient left the department. (13:50 KMOR) PRESCRIPTION No recorded prescriptions IMAGING *MEMORANDUM OF TRANSFER: Image captured from scanner. (14:02 KMOR) CONSENTS: Image captured from scanner. (14:02 KMOR) PHYSICIAN CERTIFICATION STATEMENT: Image captured from scanner. (14:03 KMOR) *SUPPLY CHARGE SHEET: Image captured from scanner. (14:03 KMOR) ADMIN DIGITAL SIGNATURE: LEONORA Rodriguez, Deyanira. (17:54 KMOR) DO To Matthew. (SunOct 17, 2016 09:21 MBRI) RESULTS LABORATORY: Lipase Collection DT: SunOct 16, 2016 12:30, Lipase 36 U/L, Range (8-78). (13:02 MBRI) Comprehensive Metabolic Panel Collection DT: SunOct 16, 2016 12:30, *Sodium 134 - L mmol/L, Range (136-145), Potassium 3.7 mmol/L, Range (3.5-5.1), Chloride 101 mmol/L, Range (98-107), Carbon Dioxide 23 mmol/L, Range (23-31), Anion Gap 14 mmol/L, Range (10-20), *BUN (Urea Nitrogen) 37 - H mg/dL, Range (9.8-20.1), *Creatinine 1.64 - H mg/dL, Range (0.6-1.1), Estimated GFR-MDRD 36 , Reference Range for Estimated GFR: Greater than 90, mL/min/1.73 m2 NOTE: The MDRD equation has not been validated for use, with the elderly (over 70 years of age), women, patients with, serious comorbid condition or persons with extremes of body size, muscle, mass, or nutritional status. , *Glucose 122 - H mg/dL, Range (83-110), *Calcium 7.5 - L mg/dL, Range (7.8-10.44), *Bilirubin, Total 1.9 - H mg/dL, Range (0.2-1.2), &a-1R&a+25V*p+0X*c2592M*c202B*c15G*c2P*p-0X&a-25V&a+1R Name: Kota Hi : 1935 F80 MedRec: [id number] AcctNum: [id number] Prepared: SunOct 17, 2016 09:28 by Interface Page 10 of 12 pMD [facility] EMERGENCY RECORD *Protein, Total 8.9 - H g/dL, Range (5.8-8.1), NOTE: Plasma values are generally 0.3 to 0.5 g/dL higher than serum values, due to the presence of fibrinogen. , *Albumin 2.9 - L g/dL, Range (3.4-4.8), *Globulin 6.0 - H g/dL, Range (2.4-3.5), *Alb/Glob Ratio 0.5 - L g/dL, Range (1.2-2.2), Alkaline Phosphatase 119 U/L, Range (40-150), *AST (SGOT) 42 - H U/L, Range (5-34), ALT (SGPT) 24 U/L, Range (0-55). (13:02 RI) CBC with Differential Collection DT: SunOct 16, 2016 12:30, White Blood Cell (WBC) Count 7.5 thou/uL, Range (4.8-10.8), *Red Blood Cell (RBC) Count 3.31 - L mill/uL, Range (4.20-5.40), *Hemoglobin 10.9 - L g/dL, Range (12.0-16.0), *Hematocrit 33.2 - L %, Range (36.0-47.0), *Mean Corpuscular Volume 101.0 - H fl, Range (81.0-99.0), *Mean Corpuscular Hemoglobin 33.0 - H pg, Range (27.0-31.0), Mean Corpuscular HGB CONC 32.9 g/dL, Range (32.0-36.0), RBC Distribution Width 14.0 %, Range (11.5-14.5), *Platelet Count 124 - L thou/uL, Range (130-400), Mean Platelet Volume 8.3 fL, Range (7.4-10.4), *%Neutrophils 81.2 - H %, Range (42.0-75.0), *%Lymphocytes 9.6 - L %, Range (21.0-51.0), %Monocytes 8.1 %, Range (0.0-10.0), %Eosinophils 0.5 %, Range (0.0-10.0), %Basophils 0.6 %, Range (0.0-1.0), #Neutrophils 6.1 thou/uL, Range (1.40-6.50), *#Lymphocytes 0.7 - L thou/uL, Range (1.20-3.40), *#Monocytes 0.6 - H thou/uL, Range (0.11-0.59), #Eosinphils 0.0 thou/uL, Range (0.0-0.7), #Basophils 0.0 thou/uL, Range (0.0-0.2). (13:02 MBRI) Urine Microscopic Collection DT: SunOct 16, 2016 13:18, RBC/HPF 0-3 HPF, Range (0-3), WBC/HPF None Seen HPF, Range (0-3), Squamous Epithelial 0-3 HPF, Range (0-3), Bacteria/HPF None Seen HPF, Range (None Seen). (13:21 MBRI) Urinalysis w/ Rflx Microscopic Collection DT: SunOct 16, 2016 13:18, Color Yellow , Range (Yellow), Clarity Clear , Range (Clear), Specific [place], Urine 1.020 , Range (1.005-1.030), pH, Urine 6.0 , Range (5.0-9.0), Leukocyte Negative , Range (Negative), *Nitrite Positive - H , Range (Negative), *Protein, Urine (Dipstick) 100 - H mg/dL, Range (Neg-Trace), Glucose, Urine (Dipstick) Negative mg/dL, Range (Negative), Ketone, Urine Negative mg/dL, Range (Negative), *Urobilinogen 2.0 - H mg/dL, Range (0.2-1.0), Bilirubin Negative , Range (Negative), , Blood, Urine Negative , Range (Negative). (13:21 MBRI) Urine Microscopic Collection DT: SunOct 16, 2016 13:18, &a-1R&a+25V*p+0X*s7953L*c202B*c15G*c2P*p-0X&a-25V&a+1R Name: Kota Hi : 1935 F80 MedRec: [id number] AcctNum: [id number] Prepared: SunOct 17, 2016 09:28 by Interface Page 11 of 12 pMD [facility] EMERGENCY RECORD RBC/HPF 0-3 HPF, Range (0-3), WBC/HPF None Seen HPF, Range (0-3), Squamous Epithelial 0-3 HPF, Range (0-3), Bacteria/HPF None Seen HPF, Range (None Seen). (13:25 KMOR) Urinalysis w/ Rflx Microscopic Collection DT: SunOct 16, 2016 13:18, Color Yellow , Range (Yellow), Clarity Clear , Range (Clear), Specific [place], Urine 1.020 , Range (1.005-1.030), pH, Urine 6.0 , Range (5.0-9.0), Leukocyte Negative , Range (Negative), *Nitrite Positive - H , Range (Negative), *Protein, Urine (Dipstick) 100 - H mg/dL, Range (Neg-Trace), Glucose, Urine (Dipstick) Negative mg/dL, Range (Negative), Ketone, Urine Negative mg/dL, Range (Negative), *Urobilinogen 2.0 - H mg/dL, Range (0.2-1.0), Bilirubin Negative , Range (Negative), , Blood, Urine Negative , Range (Negative). (13:25 KMOR) [place]: JSMI=LEONORA Lawton, Sandra KMOR=LEONORA Rodriguez, Deyanira MBRI=DO To Matthew &a-1R&a+25V*p+0X*[id number]*c202B*c15G*c2P*p-0X&a-25V&a+1R Name: Kota Hi : 1935 F80 MedRec: [id number] AcctNum: [id number] Prepared: [place] Oct 17, 2016 09:28 by Interface Page 12 of 12 pMD [facility]TDD
--- NOTE | 2016-10-16 18:31 | RAD ---
ACUTE ABDOMEN SERIES: Date: 10-16-16 FINDINGS: Supine and erect films show no free air beneath the diaphragm. The gas pattern is nonspecific. The re is no sign of overt obstruction. There are a few loops of small bowel centrally that are minimal ly distended. The largest loop measuring about 3.9 cm in width. No pathologic calcifications are s een. The chest film in the series shows mild cardiomegaly but no congestive change or pleural effus ion. The lungs are clear. IMPRESSION: Nonspecific abdominal findings. I would note that on the patient's CT scan that was done four days ago there was an area of streaking near the base of the cecum that was nonspecific in nature, and at the time, it was remote from where the patient was experiencing pain. Thus, its significance was q uestioned. If the patient is having increasing abdominal pain or it is moving lower in the abdomen, then a follow up CT scan, with oral contrast if possible, could be useful to see if there are any c hanges and get a second look at the area of streaking in the right lower quadrant. Code T POS: HOME
== END 2016-10-16 13:46 | disposition short-term general hospital (02) ==
LOC: BURERS 11:52
DX: K81.0 Acute cholecystitis (principal); N39.0 Urinary tract infection, site not specified; I10 Essential (primary) hypertension; E78.5 Hyperlipidemia, unspecified; E11.9 Type 2 diabetes mellitus without complications; Z79.2 Long term (current) use of antibiotics; Z79.899 Other long term (current) drug therapy
CPT/HCPCS: 51701; 74022; 80053; 81003; 81015; 83690; 85025; 87086; 96365; 96367; 96375; A4353; C9113; J2270; J2405; J2543; J7050

== ENCOUNTER 2016-11-01 10:05 | Outpatient (CLI) | payer MEDICARE ==
[2016-11-01 11:00] LABS: Anion Gap 14 mmol/L (10-20); BUN (Urea Nitrogen) 21 mg/dL (9.8-20.1); Calc. Creatinine Clearance 0 mL/min (70-130); Calcium 6.6 mg/dL (7.8-10.44); Carbon Dioxide 32 mmol/L (23-31); Chloride 100 mmol/L (98-107); Estimated GFR-MDRD 35
[2016-11-01 11:44] LABS: #Eosinphils 0.2 thou/uL (0.0-0.7); #Lymphocytes 0.8 thou/uL (1.20-3.40); #Monocytes 0.2 thou/uL (0.11-0.59); #Neutrophils 2.7 thou/uL (1.40-6.50); %Basophils 0.5 % (0.0-1.0); %Eosinophils 4.4 % (0.0-10.0); %Monocytes 5.4 % (0.0-10.0); Hematocrit 31.3 % (36.0-47.0); Mean Platelet Volume 7.3 fL (7.4-10.4); Red Blood Cell (RBC) Count 3.05 mill/uL (4.20-5.40); White Blood Cell (WBC) Count 3.8 thou/uL (4.8-10.8)
[2016-11-01 12:56] LABS: T4 6.8 ug/dL (4.87-11.72)
== END 2016-11-01 10:06 | disposition home or self-care (01) ==
LOC: BURLAB 10:05
PROVIDERS: ATTEND Internal Medicine Nephrology
DX: E03.9 Hypothyroidism, unspecified (principal); N18.4 Chronic kidney disease, stage 4 (severe)
CPT/HCPCS: 36415; 80048; 84436; 84443; 85025

== ENCOUNTER 2017-01-25 12:14 | Outpatient (CLI) | payer MEDICARE ==
[2017-01-25 12:37] LABS: INR-International Normal Ratio 1.3; Prothrombin Time 16.6 SEC (12.0-14.7)
[2017-01-25 12:54] LABS: #Eosinphils 0.1 thou/uL (0.0-0.7); #Lymphocytes 0.6 thou/uL (1.20-3.40); #Monocytes 0.1 thou/uL (0.11-0.59); #Neutrophils 1.3 thou/uL (1.40-6.50); %Basophils 0.6 % (0.0-1.0); %Eosinophils 5.3 % (0.0-10.0); %Lymphocytes 28.8 % (21.0-51.0); %Monocytes 6.1 % (0.0-10.0); %Neutrophils 59.2 % (42.0-75.0); Hemoglobin 10.5 g/dL (12.0-16.0); Mean Corpuscular Hemoglobin 33.9 pg (27.0-31.0); Mean Platelet Volume 7.9 fL (7.4-10.4); Platelet Count 74 thou/uL (130-400); RBC Distribution Width 14.2 % (11.5-14.5); RBC Morphology PATIENT HAS HISTORY OF LOW PLATELET COUNTS; Red Blood Cell (RBC) Count 3.08 mill/uL (4.20-5.40); White Blood Cell (WBC) Count 2.2 thou/uL (4.8-10.8)
[2017-01-25 13:10] LABS: ALT (SGPT) 30 U/L (8-55); AST (SGOT) 60 U/L (5-34); Albumin 2.9 g/dL (3.4-4.8); Alkaline Phosphatase 181 U/L (40-150); Anion Gap 12 mmol/L (10-20); BUN (Urea Nitrogen) 19 mg/dL (9.8-20.1); Bilirubin, Total 1.3 mg/dL (0.2-1.2); Calc. Creatinine Clearance 0 mL/min (70-130); Calcium 7.3 mg/dL (7.8-10.44); Carbon Dioxide 27 mmol/L (23-31); Chloride 105 mmol/L (98-107); Estimated GFR-MDRD 42; Globulin 5.2 g/dL (2.4-3.5); Glucose 125 mg/dL (83-110); Potassium 3.7 mmol/L (3.5-5.1); Protein, Total 8.1 g/dL (6.0-8.3); Sodium 140 mmol/L (136-145)
== END 2017-01-25 12:15 | disposition home or self-care (01) ==
LOC: BURLAB 12:14
PROVIDERS: ATTEND Internal Medicine Gastroenterology
DX: K74.60 Unspecified cirrhosis of liver (principal)
CPT/HCPCS: 36415; 80053; 82105; 85025; 85610

== ENCOUNTER 2017-02-02 08:04 | Outpatient (CLI) | payer MEDICARE ==
--- NOTE | 2017-02-02 11:35 | ULT ---
RIGHT UPPER QUADRANT ULTRASOUND: HISTORY: Hepatitis, cirrhosis, nonalcoholic. FINDINGS: There is nodularity of the surface of the liver consistent with cirrhosis. No hepatic mass or intra hepatic ductal dilatation is noted. There is sludge in the gallbladder without shadowing gallstones . The gallbladder wall is thickened measuring 6 mm. The common duct measures 7 m in diameter. No right-sided hydronephrosis is seen. There is free fluid in all 4 quadrants of the abdomen consisten t with ascites. The visualized portions of the pancreas are normal. IMPRESSION: 1. Cirrhosis of the liver. 2. Ascites. 3. Gallbladder sludge. POS: [facility]
== END 2017-02-02 08:05 | disposition home or self-care (01) ==
LOC: BURULT 08:04
PROVIDERS: ATTEND Internal Medicine Gastroenterology
DX: Z13.9 Encounter for screening, unspecified (principal); K75.4 Autoimmune hepatitis; K21.9 Gastro-esophageal reflux disease without esophagitis; K74.60 Unspecified cirrhosis of liver; K59.09 Other constipation; I85.00 Esophageal varices without bleeding; R18.8 Other ascites
CPT/HCPCS: 76705

== ENCOUNTER 2017-02-13 12:17 | Outpatient (CLI) | payer MEDICARE ==
[2017-02-13 12:56] LABS: Anion Gap 11 mmol/L (10-20); BUN (Urea Nitrogen) 14 mg/dL (9.8-20.1); Calc. Creatinine Clearance 0 mL/min (70-130); Calcium 7.6 mg/dL (7.8-10.44); Carbon Dioxide 24 mmol/L (23-31); Chloride 109 mmol/L (98-107); Estimated GFR-MDRD 53; Glucose 115 mg/dL (83-110); Potassium 4.4 mmol/L (3.5-5.1); Sodium 140 mmol/L (136-145)
[2017-02-13 14:18] LABS: #Eosinphils 0.1 thou/uL (0.0-0.7); #Lymphocytes 0.6 thou/uL (1.20-3.40); #Monocytes 0.2 thou/uL (0.11-0.59); #Neutrophils 1.6 thou/uL (1.40-6.50); %Basophils 0.6 % (0.0-1.0); %Eosinophils 5.7 % (0.0-10.0); %Lymphocytes 23.4 % (21.0-51.0); %Monocytes 6.1 % (0.0-10.0); %Neutrophils 64.2 % (42.0-75.0); Anisocytosis SLIGHT = 6-15 cells (100X) (0-5/hpf); Hemoglobin 10.4 g/dL (12.0-16.0); MDiff Complete? YES; Macrocytosis SLIGHT = 6-15 cells (100X) (0-5/hpf); Mean Corpuscular HGB CONC 33.4 g/dL (32.0-36.0); Mean Corpuscular Hemoglobin 34.6 pg (27.0-31.0); Mean Platelet Volume 7.2 fL (7.4-10.4); PLT Morphology Comment Appears Decreased; Platelet Count 90 thou/uL (130-400); RBC Distribution Width 15.1 % (11.5-14.5); Red Blood Cell (RBC) Count 3.01 mill/uL (4.20-5.40); White Blood Cell (WBC) Count 2.6 thou/uL (4.8-10.8)
== END 2017-02-13 12:18 | disposition home or self-care (01) ==
LOC: BURLAB 12:17
PROVIDERS: ATTEND Internal Medicine Nephrology
DX: N18.3 Chronic kidney disease, stage 3 (moderate) (principal)
CPT/HCPCS: 36415; 80048; 83970; 84100; 85025

== ENCOUNTER 2017-10-24 09:01 | Outpatient (CLI) | payer MEDICARE ==
--- NOTE | 2017-10-25 08:06 | ULT ---
RIGHT UPPER QUADRANT ULTRASOUND 10/24/17 Comparison is made with the prior study of 10/11/17 that was from a paracentesis done several days ago. The patient is known to have ascites. While the liver is not shown optimally, it appears shrunken and has lobulated edges suggesting cirrho sis. There is considerable ascites with the largest pocket being in the left upper quadrant, about 10 cm in length. The next largest pocket is in the left lower quadrant. While still a sizable amount of fluid, it represents a significant improvement from the 10/11 study. Fluid collection seen previously in the right upper quadrant have decreased markedly in the interval. Internally, no masses were apparent in the images of the liver. the pancreas was partially obscured b y gas, but the visible areas showed no focal findings. The right kidney showed no sign of hydronephro sis and was 9.8 cm long. IMPRESSION: 1. Ascites which remains significant, particularly on the left side, but still substantially les s than on 10/11. 2. Presumed hepatic cirrhosis. No mass is seen internally. I would also note that the portal yazmin ous flow appears to be towards the liver. POS: HOME
== END 2017-10-24 09:02 | disposition home or self-care (01) ==
LOC: BURULT 09:01
PROVIDERS: ATTEND Internal Medicine Gastroenterology
DX: K75.4 Autoimmune hepatitis (principal); K74.60 Unspecified cirrhosis of liver; I85.00 Esophageal varices without bleeding; N18.9 Chronic kidney disease, unspecified; D61.818 Other pancytopenia; R18.8 Other ascites; Z79.899 Other long term (current) drug therapy
CPT/HCPCS: 76705

== ENCOUNTER 2019-02-06 09:19 | Outpatient (CLI) | payer MEDICARE ==
[2019-02-06 15:56] LABS: #Eosinphils 0.1 thou/uL (0.0-0.7); #Lymphocytes 0.5 thou/uL (1.20-3.40); #Monocytes 0.1 thou/uL (0.11-0.59); #Neutrophils 1.9 thou/uL (1.40-6.50); %Basophils 0.3 % (0.0-1.0); %Eosinophils 2.6 % (0.0-10.0); %Lymphocytes 18.7 % (21.0-51.0); %Monocytes 5.5 % (0.0-10.0); %Neutrophils 72.9 % (42.0-75.0); Hemoglobin 10.8 g/dL (12.0-16.0); Mean Corpuscular Hemoglobin 33.4 pg (27.0-31.0); Mean Platelet Volume 10.5 fL (7.4-10.4); Platelet Count 65 thou/uL (130-400); RBC Distribution Width 13.8 % (11.5-14.5); Red Blood Cell (RBC) Count 3.23 mill/uL (4.20-5.40); White Blood Cell (WBC) Count 2.5 thou/uL (4.8-10.8)
[2019-02-06 16:05] LABS: Anion Gap 11 mmol/L (10-20); BUN (Urea Nitrogen) 25 mg/dL (9.8-20.1); Calc. Creatinine Clearance 0 mL/min (70-130); Calcium 8.6 mg/dL (7.8-10.44); Carbon Dioxide 26 mmol/L (23-31); Chloride 104 mmol/L (98-107); Estimated GFR-MDRD 47; Glucose 155 mg/dL (83-110); Sodium 137 mmol/L (136-145)
--- NOTE | 2019-02-07 14:27 | ULT ---
ULTRASOUND ABDOMEN LIMITED: (RIGHT UPPER QUADRANT) DATE: 02/07/2019 HISTORY: Decompensated hepatic cirrhosis, autoimmune hepatitis, and ascites. COMPARISON: 02/02/2017 FINDINGS: Coarse echotexture and very nodular margins, of liver. Unlike on the prior study, no free fluid identified in right upper quadrant. 3 x 2 cm cyst at upper pole of right kidney. No hydronephrosis of right kidney. Common duct caliber 6 - 7 mm. Nonspecific sonographic appearance of pancreas. Mural thickening and mild pericholecystic fluid, less prominent than on the prior study. Sludge in the gallbladder. No gallstone identified. Flow demonstrated in a segment of portal vein, but difficult to evaluate directionality of flow on si ngle Doppler image provided. IMPRESSION: 1) severe cirrhosis. 2) no ascites visualized. 3) gallbladder sludge
== END 2019-02-06 09:20 | disposition home or self-care (01) ==
LOC: BURULT 09:19
PROVIDERS: ATTEND Physician Assistant Medical
DX: N18.3 Chronic kidney disease, stage 3 (moderate) (principal); I85.00 Esophageal varices without bleeding; K74.60 Unspecified cirrhosis of liver; K75.4 Autoimmune hepatitis; R18.8 Other ascites; K82.8 Other specified diseases of gallbladder
CPT/HCPCS: 36415; 76705; 80048; 85025

== ENCOUNTER 2020-11-11 19:38 | Emergency (ER) | payer MEDICARE ==
--- NOTE | 2020-11-11 20:15 | RAD ---
CHEST ONE VIEW: 11/11/20 COMPARISON: 10/17/16. HISTORY: Chills and fever. FINDINGS: Stable left sided transvenous pacemaker. Stable heart size. There is atherosclerosis of the aorta. Pu lmonary vessels and hilum are normal. Costophrenic angles are clear. Chronic changes without masses o r consolidation. No pneumothorax or acute osseous abnormalities. IMPRESSION: Chronic change in the lung parenchyma. Atherosclerosis. POS: [facility]
[2020-11-11 20:20] LABS: Bilirubin Negative (Negative); Blood, Urine Large (Negative); Clarity Cloudy (Clear); Glucose, Urine (Dipstick) 500 mg/dL (Negative); Ketone, Urine Negative (Negative); Leukocyte Small (Negative); Nitrite Negative (Negative); Protein, Urine (Dipstick) 100 mg/dL (Neg-Trace); pH, Urine 6.5 (5.0-9.0)
[2020-11-11 20:28] LABS: RBC/HPF 21-50 HPF (0-3); WBC/HPF Greater than 50 HPF (0-3)
[2020-11-11 20:29] LABS: Bacteria/HPF 1+ HPF (None Seen); Squamous Epithelial 0-3 HPF (0-3)
[2020-11-11 20:39] LABS: ALT (SGPT) 23 U/L (8-55); AST (SGOT) 24 U/L (5-34); Albumin 3.3 g/dL (3.4-4.8); Alkaline Phosphatase 168 U/L (40-110); Anion Gap 20 mmol/L (10-20); BUN (Urea Nitrogen) 27 mg/dL (9.8-20.1); Bilirubin, Total 3.4 mg/dL (0.2-1.2); Calc. Creatinine Clearance 0 mL/min (70-130); Calcium 8.5 mg/dL (7.8-10.44); Carbon Dioxide 24 mmol/L (23-31); Chloride 91 mmol/L (98-107); Globulin 4.3 g/dL (2.4-3.5); Glucose 477 mg/dL (83-110); Potassium 4.8 mmol/L (3.5-5.1); Protein, Total 7.6 g/dL (5.8-8.1); Sodium 130 mmol/L (136-145)
[2020-11-11 20:55] LABS: #Lymphocytes 0.1 thou/uL (1.20-3.40); #Neutrophils 2.3 thou/uL (1.40-6.50); %Basophils 0.2 % (0.0-1.0); %Eosinophils 0.1 % (0.0-10.0); %Lymphocytes 5.7 % (21.0-51.0); %Monocytes 1.7 % (0.0-10.0); %Neutrophils 92.4 % (42.0-75.0); Band 12 % (5-11); Hemoglobin 11.3 g/dL (12.0-16.0); Lymphocytes 6 % (21-51); MDiff Complete? YES; Macrocytosis SLIGHT = 6-15 cells (100X) (0-5/hpf); Mean Corpuscular HGB CONC 33.5 g/dL (32.0-36.0); Mean Platelet Volume 7.7 fL (7.4-10.4); Monocytes 2 % (0-10); Neutrophil 80 % (42-75); Platelet Count 66 thou/uL (130-400); Platelet Morphology Comment Appears Decreased; RBC Distribution Width 14.8 % (11.5-14.5); Red Blood Cell (RBC) Count 3.06 mill/uL (4.20-5.40); White Blood Cell (WBC) Count 2.5 thou/uL (4.8-10.8)
[2020-11-11] MEDS ORDERED: Insulin Regular 300 UNITS/3 ML VIAL ONE (20:59)
[2020-11-11] MEDS ORDERED: cefTRIAXone\\ROCEPHIN 1 GM VIAL ONE (20:59)
[2020-11-11] MEDS ORDERED: Sodium Chloride 0.9% 100 ML ONE (21:00)
== END 2020-11-11 21:43 | disposition short-term general hospital (02) ==
LOC: BURERS 19:38
DX: A41.9 Sepsis, unspecified organism (principal); N39.0 Urinary tract infection, site not specified; E11.65 Type 2 diabetes mellitus with hyperglycemia; E78.5 Hyperlipidemia, unspecified; I10 Essential (primary) hypertension
CPT/HCPCS: 36415; 71045; 80053; 81003; 81015; 83605; 83880; 84484; 85025; 87040; 87077; 87086; 87186; 93005; 94760; 96365; 96374; 96375; J0696; J1815; J3490